=== PATIENT | male | born 1990 | race Two or more races ===

== ENCOUNTER 2023-02-09 18:20 | Emergency (ER) | payer SELFPAY ==
[~2023-02-09] VITALS: Ht 167.6 cm; Wt 91.0 kg
[2023-02-09 19:16] LABS: Basophils # (auto) 0 10 ^3/uL (0-0.2); Basophils % (auto) 0.4 % (0.0-2.0); Eosinophils # (auto) 0.1 10 ^3/uL (0-0.8); Hemoglobin 15.9 g/dL (13.5-17.5); Lymphocytes # (auto) 2.2 10 ^3/uL (0.4-5.4); Lymphocytes % (auto) 27.9 % (10.0-50.0); Mean Corpuscular Hemoglobin 30.4 pg (28.0-32.0); Mean Corpuscular Hgb Conc. 34.5 g/dL (32.0-36.0); Mean Corpuscular Volume 88.1 fL (80.0-100.0); Monocytes # (auto) 0.6 10 ^3/uL (0-1.3); Monocytes % (auto) 7.1 % (0.0-12.0); Neutrophils # (auto) 5.1 10 ^3/uL (1.6-8.6); Neutrophils % (auto) 63.6 % (37.0-80.0); Red Blood Cells 5.23 10^6/uL (4.5-5.90)
[2023-02-09 19:30] LABS: Albumin 4.5 g/dL (3.4-5.0); Calcium 9.4 mg/dL (8.5-10.1); Potassium 4.3 mmol/L (3.5-5.1)
[2023-02-09 19:37] LABS: Bilirubin, Total 0.5 mg/dL (0.2-1.0); CRP High Sensitivity 0.13 mg/dL (< 0.3); Total Protein 7.9 g/dL (6.4-8.2)
[2023-02-09 21:20] LABS: Urine Bacteria NONE SEEN /hpf (None Seen); Urine Blood Negative /uL (Negative); Urine Mucus FEW (None Seen); Urine Specific Gravity 1.014 (1.001-1.035); Urine WBC 1 /hpf (0 - 3)
[2023-02-09 22:42] VITALS: BP 109/74
== END 2023-02-09 22:42 | disposition home or self-care (01) ==
LOC: EDBD 18:20 → ER 18:25 → EDBD 18:25 → ER 22:42
DX: I86.1 Scrotal varices (principal)
CPT/HCPCS: 36415; 74176; 76870; 80053; 81001; 85025; 86141

== ENCOUNTER 2023-05-27 14:03 | Emergency (ER) | payer MEDICAID ==
[~2023-05-27] VITALS: Ht 162.6 cm; Wt 95.3 kg
[2023-05-27 14:13] VITALS: BP 132/85; PULSE 85; RESP 17; TEMP 97.4; O2SAT 99
[2023-05-27] MEDS ORDERED: IBUP-1456 PO (16:21)
== END 2023-05-27 16:34 | disposition home or self-care (01) ==
LOC: ER 14:03
DX: I86.1 Scrotal varices (principal); N43.3 Hydrocele, unspecified; N50.812 Left testicular pain
CPT/HCPCS: 76870; 81002

== ENCOUNTER 2023-10-29 21:07 | Emergency (ER) | payer MEDICAID ==
[~2023-10-29] VITALS: Ht 167.6 cm; Wt 100.0 kg
[~2023-10-29 21:07] MED LIST: IBUP-1456 PO
[2023-10-29 21:54] LABS: Basophils # (auto) 0 10 ^3/uL (0-0.2); Basophils % (auto) 0.5 % (0.0-2.0); Eosinophils # (auto) 0.1 10 ^3/uL (0-0.8); Eosinophils % (auto) 1.6 % (0.0-7.0); Hematocrit 49.2 % (41.0-53.0); Hemoglobin 16.4 g/dL (13.5-17.5); Lymphocytes # (auto) 2.6 10 ^3/uL (0.4-5.4); Lymphocytes % (auto) 27.3 % (10.0-50.0); Mean Corpuscular Hemoglobin 29.3 pg (28.0-32.0); Mean Corpuscular Hgb Conc. 33.3 g/dL (32.0-36.0); Mean Corpuscular Volume 88.2 fL (80.0-100.0); Monocytes # (auto) 0.7 10 ^3/uL (0-1.3); Monocytes % (auto) 7.7 % (0.0-12.0); Neutrophils # (auto) 5.9 10 ^3/uL (1.6-8.6); Neutrophils % (auto) 62.9 % (37.0-80.0); Nucleated Red Blood Cells % 0.1 %; Red Blood Cells 5.58 10^6/uL (4.5-5.90); Red Cell Distribution Width 13.1 % (11.8-14.3); White Blood Cell 9.3 10^3/uL (4.4-10.8)
[2023-10-29 22:10] LABS: Alanine Aminotransferase 59 U/L (7-40); Albumin 4.8 g/dL (3.2-4.8); Alkaline Phosphatase 99 U/L (46-116); Anion Gap 7 (5-15); Aspartate Aminotransferase 28 U/L (13-40); BUN/Creatinine Ratio 8.7 (10.0-20.0); Blood Urea Nitrogen 8 mg/dL (9-23); Calcium 9.6 mg/dL (8.7-10.4); Carbon Dioxide 24 mmol/L (20-30); Chloride 107 mmol/L (98-107); Glucose 95 mg/dL (74-106); Potassium 4.4 mmol/L (3.5-5.1); Sodium 138 mmol/L (136-145)
[2023-10-29 22:11] LABS: Bilirubin, Total 0.3 mg/dL (0.2-1.0); Total Protein 7.2 g/dL (5.7-8.2)
[2023-10-29 22:35] LABS: Urine Bacteria NONE SEEN /hpf (None Seen); Urine Blood Negative /uL (Negative); Urine Clarity Clear (Clear); Urine Color Colorless (Yellow); Urine Mucus FEW (None Seen); Urine Protein, UAD Negative (Negative); Urine Urobilinogen Normal (Negative); Urine WBC 1 /hpf (0 - 3); Urine pH 5.5 (5.0-8.0)
[2023-10-30] MEDS: MORPHINE SULFATE 4 MG/ML SYR/VIAL IV ONE (02:00)
[2023-10-30] MEDS: SODIUM CHLORIDE 0.9% 1,000 ML IV ONE (02:00)
[2023-10-30] MEDS: ONDANSETRON HCL 4 MG/2 ML VIAL IV ONE (02:00)
[2023-10-30] MEDS: PANTOPRAZOLE 40 MG/10 ML VIAL INJ IV ONE (02:00)
[2023-10-30] MEDS ORDERED: ZOFR4T PO (02:04)
[2023-10-30] MEDS ORDERED: FAMO20TA10 PO (02:04)
[2023-10-30] MEDS ORDERED: HYDR-4902 PO (02:04)
[2023-10-30 03:35] VITALS: BP 134/90; PULSE 100; RESP 13; TEMP 98.8; O2SAT 100
== END 2023-10-30 03:47 | disposition home or self-care (01) ==
LOC: ER 21:07
DX: K29.70 Gastritis, unspecified, without bleeding (principal); K80.20 Calculus of gallbladder without cholecystitis without obstruction; R07.89 Other chest pain
CPT/HCPCS: 36415; 76700; 80053; 81001; 83690; 84484; 85025; 93005

== ENCOUNTER → 2023-11-03 | Emergency (ER) | payer MEDICAID ==
[~2023-11-03] VITALS: Ht 167.6 cm; Wt 99.1 kg
[~2023-11-03] MED LIST changes: +FAMO20TA10 PO; +HYDR-4902 PO; +IBUP1TAB5 PO; +ZOFR4T PO
[2023-11-03 20:11] VITALS: BP 107/54; PULSE 96; RESP 14; O2SAT 99
[2023-11-03 21:55] LABS: Amphetamine Screen, Urine Neg (NEGATIVE); Barbiturate Scree,Urine Neg (NEGATIVE); Benzodiazephine Screen, Urine Neg (NEGATIVE); Cocaine Screen, Urine Neg (NEGATIVE); Opiate Scree,Urine Neg (NEGATIVE); Phencyclidine Screen, Urine Neg (NEGATIVE)
[2023-11-03 21:56] LABS: Cannabinoid Screen, Urine Neg (NEGATIVE)
== END | disposition home or self-care (01) ==
LOC: ER 19:26
DX: Z02.79 Encounter for issue of other medical certificate (principal); K80.20 Calculus of gallbladder without cholecystitis without obstruction; Z79.899 Other long term (current) drug therapy; Z79.1 Long term (current) use of non-steroidal anti-inflammatories (NSAID)
CPT/HCPCS: 80307

== ENCOUNTER 2024-02-10 15:01 | Emergency (ER) | payer MEDICAID ==
[~2024-02-10] VITALS: Ht 167.6 cm; Wt 94.7 kg
[~2024-02-10 15:01] MED LIST changes: -HYDR-4902 PO
[2024-02-10 15:33] LABS: Urine Bacteria None Seen /hpf (None Seen); Urine WBC None Seen /hpf (0 - 3)
[2024-02-10 15:42] LABS: Urine Blood Negative /uL (Negative); Urine Clarity Clear (Clear); Urine Color Light-Yellow (Yellow); Urine Mucus FEW (None Seen); Urine Protein, UAD Negative (Negative); Urine Specific Gravity 1.016 (1.001-1.035); Urine Urobilinogen Normal (Negative); Urine pH 5.5 (5.0-9.0)
[2024-02-10] MEDS: HYDROcodone-ACET 10/325MG TAB PO ONE (15:51)
[2024-02-10 16:10] VITALS: BP 132/77; PULSE 88; RESP 16; TEMP 98.3; O2SAT 98
[2024-02-10] MEDS ORDERED: IBUP-1455 PO (16:21)
[2024-02-10] MEDS ORDERED: ACE3T PO (16:21)
== END 2024-02-10 16:28 | disposition home or self-care (01) ==
LOC: ER 15:01
DX: N50.812 Left testicular pain (principal); E66.9 Obesity, unspecified; Z68.33 Body mass index [BMI] 33.0-33.9, adult; Z79.899 Other long term (current) drug therapy
CPT/HCPCS: 76870; 81001

== ENCOUNTER 2024-05-02 19:01 | Emergency (ER) | payer MEDICAID ==
[~2024-05-02] VITALS: Ht 170.2 cm; Wt 92.8 kg
[~2024-05-02 19:01] MED LIST changes: +ACE3T PO; +IBUP-1455 PO
[2024-05-02 20:16] LABS: Urine Bacteria None Seen /hpf (None Seen)
[2024-05-02 20:23] LABS: Urine Blood Negative /uL (Negative); Urine Clarity Clear (Clear); Urine Color Light-Yellow (Yellow); Urine Mucus FEW (None Seen); Urine Protein, UAD Negative (Negative); Urine Specific Gravity 1.021 (1.001-1.035); Urine Urobilinogen Normal (Negative); Urine WBC <1 /hpf (0 - 3)
[2024-05-02 21:44] LABS: Basophils # (auto) 0 10 ^3/uL (0-0.2); Basophils % (auto) 0.6 % (0.0-2.0); Eosinophils # (auto) 0.1 10 ^3/uL (0-0.8); Eosinophils % (auto) 1.7 % (0.0-7.0); Hematocrit 46.3 % (41.0-53.0); Hemoglobin 15.3 g/dL (13.5-17.5); Lymphocytes # (auto) 2.1 10 ^3/uL (0.4-5.4); Lymphocytes % (auto) 31.7 % (10.0-50.0); Mean Corpuscular Hemoglobin 29.3 pg (28.0-32.0); Mean Corpuscular Volume 88.8 fL (80.0-100.0); Monocytes # (auto) 0.5 10 ^3/uL (0-1.3); Monocytes % (auto) 7.4 % (0.0-12.0); Neutrophils # (auto) 3.8 10 ^3/uL (1.6-8.6); Neutrophils % (auto) 58.6 % (37.0-80.0); Nucleated Red Blood Cells % 0.1 %; Red Blood Cells 5.22 10^6/uL (4.5-5.90); Red Cell Distribution Width 13.3 % (11.8-14.3); White Blood Cell 6.5 10^3/uL (4.4-10.8)
[2024-05-02 21:52] LABS: Alanine Aminotransferase 35 U/L (7-40); Albumin 4.5 g/dL (3.2-4.8); Alkaline Phosphatase 90 U/L (46-116); Anion Gap 6 (5-15); Aspartate Aminotransferase 16 U/L (13-40); BUN/Creatinine Ratio 15.5 (10.0-20.0); Bilirubin, Total 0.5 mg/dL (0.2-1.0); Blood Urea Nitrogen 15 mg/dL (9-23); Calcium 9.8 mg/dL (8.7-10.4); Carbon Dioxide 28 mmol/L (20-30); Chloride 106 mmol/L (98-107); Glucose 90 mg/dL (74-106); Potassium 4.3 mmol/L (3.5-5.1); Sodium 140 mmol/L (136-145); Total Protein 7.1 g/dL (5.7-8.2)
[2024-05-02 22:00] VITALS: BP 112/68; PULSE 70; RESP 16; TEMP 98.5; O2SAT 99
[2024-05-02] MEDS ORDERED: IBUP-1455 PO (22:09)
[2024-05-02] MEDS ORDERED: CIPR-173 PO (22:09)
[2024-05-02] MEDS: methylPREDNISolone SOD SUCC 125 MG/2 ML VL IM ONE (22:17)
[2024-05-02] MEDS: KETOROLAC TROMETH 30 MG/ML 1ML VIAL IM ONE (22:17)
== END 2024-05-02 22:32 | disposition home or self-care (01) ==
LOC: ER 19:01
DX: N50.812 Left testicular pain (principal); I86.1 Scrotal varices
CPT/HCPCS: 36415; 76870; 80053; 81001; 85025; 96372; 99285; J1885; J2919

== ENCOUNTER 2024-11-22 17:35 | Inpatient (IN) | payer MEDICAID ==
[~2024-11-22] VITALS: Ht 167.6 cm; Wt 105.5 kg
[~2024-11-22 17:35] MED LIST changes: +CIPR-173 PO
--- NOTE | 2024-11-22 19:35 | DVH ---
Procedure: US TESTICULAR ULTRASOUND Study Date and Requested Time: 11/22/2024 06:43 PM History: Bilateral testicular pain Comparison: US TESTICULAR ULTRASOUND on DOS: 05/02/24, US TESTICULAR ULTRASOUND on DOS: 02/10/24, US TE STICULAR ULTRASOUND on DOS: 05/27/23 Technique: Multiple high-resolution grayscale images of scrotal contents obtained. Color and spectral Doppler used for evaluation of testicular blood flow. Findings: Right testicle measures 5.1 x 2.2 x 3.1 cm with homogenous echotexture and normal contours. Right epi didymal head measures 1.4 cm with a 0.8 cm cyst. Left testicle measures 4.4 x 2 x 2.8 cm with homogenous echotexture and normal contours. Left epididy mal head measures 1.2 cm with a 0.4 cm cyst. Normal testicular color and spectral Doppler flow bilaterally. No evidence of testicular torsion, mas s, or hydrocele. Left-sided varicocele is noted. Impression: No evidence of testicular torsion . Bilateral small epididymal head cysts. Left-sided varicocele.
[2024-11-22 19:40] VITALS: PULSE 83; RESP 18
[2024-11-22] MEDS: KETOROLAC TROMETH 60MG/2ML VIAL IM ONE (19:46)
--- NOTE | 2024-11-22 20:11 | ED.PDOC ---
General HPI Comments This patient is a morbidly obese 34-year-old male who arrives the ED today for evaluation of bilateral testicular pain for the past few weeks. Patient states he was diagnosed with a varicocele and hydrocele 10 days ago, but patient has not followed up with his primary care provider or uro. Patient denies any fever nausea or vomiting. Vital signs were stable on arrival. Chief Complaint: Testicle Pain Time Seen by MD: 18:11 Primary Care Provider: UNKNOWN Reviewed notes: Nurses Notes Allergies: Coded Allergies: NO KNOWN ALLERGIES (Unverified , 02/09/23) Home Meds Active Scripts Ibuprofen Micronized (Ibuprofen) 800 Mg Tab, 800 MG PO TID PRN, #40 TAB Prov:KENDRICK VERDUZCO [employer]INCIPAL 05/02/24 Ciprofloxacin Hcl (Cipro) 500 Mg Tab, 1 TAB PO BID for 7 Days, #14 TAB Prov:KENDRICK VERDUZCO [employer] PRINCIPAL 05/02/24 Acetaminophen W/ Codeine (Tylenol W/Cod #3) 1 Tab Tb, 1 TAB PO Q6HP PRN, #15 TAB Prov:ROSA GRANADOS PAC 02/10/24 Ibuprofen Micronized (Ibuprofen) 800 Mg Tab, 800 MG PO Q8HP PRN, #20 TAB Prov:ROSA GRANADOS PAC 02/10/24 Ibuprofen Micronized (Ibuprofen) 600 Mg Tab, 1 TAB PO Q8HPRN PRN, #20 TAB As needed for pain Prov:MILES HILL Q PENOLOGY PROFESSOR 11/03/23 Famotidine (PEPCID TABLET) 20 Mg Tb, 1 TAB PO BID for 30 Days, #60 TAB Prov:MILES HILL Q PENOLOGY PROFESSOR 10/30/23 Ondansetron Odt 4MG Tab (ZOFRAN PO) 4 Mg Tb, 1 TAB PO Q8HPRN PRN, #12 TAB as needed for nausea vomiting ODT TAB-DISSOLVE IN MOUTH, THEN SWALLOW Prov:MILES HILL Q PENOLOGY PROFESSOR 10/30/23 Ibuprofen (Ibuprofen) 800 Mg Tab, 1 TAB PO TID, #30 TAB Prov:RICO ANAYA PENOLOGY PROFESSOR 05/27/23 Information Source: Patient Mode of Arrival: Ambulatory Severity: Moderate Timing: Weeks Duration: Since onset Prehospital treatment: None Onset: Spontaneous Symptoms: Other (Bilateral testicular pain) Location male: R Scrotum, L Scrotum Penile discharge: None Modifying factors: None associated signs and symptoms: Other ( bilateral testicular pain) Past Medical History PAST MEDICAL HISTORY: Denies Past Medical History (Other): recent varicocele and hydrocele Surgical History: Denies all surgeries Family History Family History: Reviewed,noncontributory to illness Social History Smoker: Non-Smoker Alcohol: Denies ETOH Use Drugs: Denies Drug Use Lives In: Home Constitutional: denies: chills, diaphoresis, fatigue, fever, malaise, sweats, weakness, others EENTM: denies: blurred vision, double vision, ear bleeding, ear discharge, ear drainage, ear pain, ear ringing, eye pain, eye redness, hearing loss, mouth pain, mouth swelling, nasal discharge, nose bleeding, nose congestion, nose pain, photophobia, tearing, throat pain, throat swelling, voice changes, others Respiratory: denies: cough, hemoptysis, orthopnea, SOB at rest, shortness of breath, SOB with excertion, stridor, wheezing, others Cardiovascular: denies: chest pain, dizzy spells, diaphoresis, Dyspnea on exertion, edema, irregular heart beat, left arm pain, lightheadedness, palpitations, PND, syncope, others Gastrointestinal: denies: abdomen distended, abdominal pain, blood streaked bowels, constipated, diarrhea, dysphagia, difficulty swallowing, hematemesis, melena, nausea, poor appetite, poor fluid intake, rectal bleeding, rectal pain, vomiting, others Genitourinary: reports: testicle pain, testicle swelling; denies: burning, dysuria, flank pain, frequency, hematuria, incontinence, penile discharge, penile sore, pain, urgency, others Neurological: denies: dizziness, fainting, headache, left sided numbness, left sided weakness, numbness, paresthesia, pre-existing deficit, right sided numbness, right sided weakness, seizure, speech problems, tingling, tremors, weakness, others Musculoskeletal: denies: back pain, gout, joint pain, joint swelling, muscle pain, muscle stiffness, neck pain, others Integumetry: denies: bruises, change in color, change in hair/nails, dryness, laceration, lesions, lumps, rash, wounds, others Allergic/Immunocompromised: denies: Difficulty Healing, Frequent Infections, Hives, Itching, others Hematologic/Lymphatic: denies: anemia, blood clots, easy bleeding, easy bruising, swollen glands, others Endocrine: denies: excessive hunger, excessive sweating, excessive thirst, excessive urination, flushing, intolerance to cold, intolerance to heat, unexplained weight gain, unexplained weight loss, others Psychiatric: denies: anxiety, bipolar disorder, depression, hopeless, panic disorder, schizophrenia, sleepless, suicidal, others Physical Exam General Appearance: Moderate Distress ( due to bilateral testicular pain), Obese HEENT: Normal ENT Inspection, Pharynx Normal, TMs Normal Neck: Full Range of Motion, Non-Tender, Normal, Normal Inspection Respiratory: Chest Non-Tender, Lungs Clear, No Accessory Muscle Use, No Respiratory Distress, Normal Breath Sounds Cardiovascular: No Edema, No JVD, No Murmur, No Gallop, Normal Peripheral Pulses, Regular Rate/Rhythm Breast Exam: Deferred Gastrointestinal: No Organomegaly, Non Tender, No Pulsatile Mass, Normal Bowel Sounds, Soft Genitalia: Other ( patient has bilateral testicles were exquisitely tender to palpation with noted grade 2/three varicocele i.e. appreciated in bilateral testicles with left greater than right. No penile discharge noted. No chancre formation.) Pelvic: Deferred Rectal: Deferred Extremities: No calf tenderness, Normal capillary refill, Normal inspection, Normal range of motion, Non-tender, No pedal edema Neurologic: Alert, No Motor Deficits, Normal Affect, Normal Mood, No Sensory Deficits Cerebellar Function: Normal Reflexes: Normal Skin: Dry, Normal Color, Warm Lymphatic: No Adenopathy Was a procedure done? Was a procedure done?: No Differential Diagnosis Kidney stone (Female): N/A Penile/Scrotal: Other ( Hydrocele, varicocele, testicular torsion, testicular cyst) X-Ray, Labs, Meds, VS Vital Signs Date Time Temp Pulse Resp B/P (MAP) Pulse Ox O2 Delivery O2 Flow Rate FiO2 11/22/24 18:17 98.2 93 16 128/84 (99) 100 Current Medications Medications (Trade) Dose Ordered Sig/Aruan Route Start Time Stop Time Status Last Admin Ketorolac Tromethamine (Toradol Injection) 30 mg ONCE ONCE IM 11/22/24 18:30 11/22/24 18:31 DC 11/22/24 19:46 X-Ray, Labs, Meds, VS Comment All studies performed the ED were evaluated by me personally. Patient's imaging studies revealed a bilateral small epididymal head cysts as well as a left-sided varicocele. Patient presentation is a grade 2/3 varicocele and therefore, patient will be admitted for surgical evaluation.Multiple attempts were made to contact Urology at time of this note, but no return calls had been received. Time of 1ST Reevaluation: 20:10 Reevaluation 1ST: Improved Consultation: PCP, Urology Patient Education/Counseling: Diagnosis, Treatment Family Education/Counseling: Diagnosis, Treatment Departure 1 Departure Time of Disposition: 20:11 Impression: Primary Impression: Varicocele Disposition: ADMITTED INPATIENT Condition: Fair Discharged With: Self Critical Care Note Critical Care Time?: No Stability Stability form required: No Heart Score Heart Score: Heart Score Response (Comments) Value History N/A 0 EKG N/A 0 Age N/A 0 Risk Factors N/A 0 Troponin N/A 0 Total 0 ROSA GRANADOS [facility] Nov 22, 2024 20:11
[2024-11-22 20:15] LABS: Urine Bacteria None Seen /hpf (None Seen)
[2024-11-22] MEDS: HYDROcodone-ACET 10/325MG TAB PO ONE (20:28)
[2024-11-22 20:37] LABS: Basophils # (auto) 0 10 ^3/uL (0-0.2); Basophils % (auto) 0.5 % (0.0-2.0); Eosinophils # (auto) 0.1 10 ^3/uL (0-0.8); Eosinophils % (auto) 1.6 % (0.0-7.0); Hematocrit 46.8 % (41.0-53.0); Hemoglobin 15.7 g/dL (13.5-17.5); Lymphocytes # (auto) 2.7 10 ^3/uL (0.4-5.4); Lymphocytes % (auto) 36.1 % (10.0-50.0); Mean Corpuscular Hemoglobin 29.5 pg (28.0-32.0); Mean Corpuscular Hgb Conc. 33.7 g/dL (32.0-36.0); Mean Corpuscular Volume 87.7 fL (80.0-100.0); Monocytes # (auto) 0.4 10 ^3/uL (0-1.3); Monocytes % (auto) 5.9 % (0.0-12.0); Neutrophils # (auto) 4.2 10 ^3/uL (1.6-8.6); Neutrophils % (auto) 55.9 % (37.0-80.0); Nucleated Red Blood Cells % 0.3 %; Platelet Count (auto) 247 10^3/uL (140-450); Red Blood Cells 5.33 10^6/uL (4.5-5.90); Red Cell Distribution Width 13.1 % (11.8-14.3); White Blood Cell 7.5 10^3/uL (4.4-10.8)
[2024-11-22 20:39] LABS: Urine Blood Negative /uL (Negative); Urine Clarity Clear (Clear); Urine Color Light-Yellow (Yellow); Urine Mucus FEW (None Seen); Urine Protein, UAD Negative (Negative); Urine Specific Gravity 1.025 (1.001-1.035); Urine Squamous Epithelial Cell None Seen /hpf (<5); Urine Urobilinogen Normal (Negative); Urine WBC < 1 /HPF (0-3); Urine pH 5.5 (5.0-9.0)
[2024-11-22 21:04] LABS: Alanine Aminotransferase 65 U/L (7-40); Albumin 4.8 g/dL (3.2-4.8); Alkaline Phosphatase 93 U/L (46-116); Anion Gap 6 (5-15); Aspartate Aminotransferase 25 U/L (13-40); Bilirubin, Total 0.4 mg/dL (0.2-1.0); Blood Urea Nitrogen 14 mg/dL (9-23); Calcium 9.9 mg/dL (8.7-10.4); Carbon Dioxide 27 mmol/L (20-31); Chloride 106 mmol/L (98-107); Glucose 93 mg/dL (74-106); Potassium 4.2 mmol/L (3.5-5.1); Sodium 139 mmol/L (136-145); Total Protein 7.2 g/dL (5.7-8.2)
[2024-11-22 23:20] VITALS: BP 102/54; PULSE 62; RESP 18; TEMP 97.8; O2SAT 97
[2024-11-22 23:35] VITALS: PULSE 78; RESP 18; O2SAT 97
--- NOTE | 2024-11-22 23:47 | DVHHPRES ---
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 The patient reports that he has had intermittent testicular discomfort since 2022, at which time a previous ultrasound identified varicoceles and a hydrocele. However, he did not follow up with a urologist for further evaluation or management. Over the past several weeks, he has noticed increasing pain, which has become persistent and is now interfering with his daily activities. No history of trauma, dysuria, hematuria, fever, chills, nause a, or weight loss. No prior surgeries or history of sexually transmitted infections. 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 No tobacco use Social alcohol use No history of illicit drug use Sexually active with female partners, no known history of STIs Review of Systems Review of Systems General: No fever, chills, weight loss, or night sweats Genitourinary: Bilateral testicular pain, no dysuria, hematuria, or urinary frequency Cardiovascular: No chest pain, palpitations, or syncope Pulmonary: No shortness of breath, cough, or wheezing Gastrointestinal: No nausea, vomiting, abdominal pain, or changes in bowel habits Neurological: No weakness, numbness, or tingling Allergies: Coded Allergies: NO KNOWN ALLERGIES (Unverified , 02/09/23) Medications Current Medications Medications Dose Ordered Sig/Aruna Route Start Time Stop Time Status Last Admin Dose Admin Ketorolac Tromethamine 30 mg Q6HPRN PRN IV 11/22/24 21:30 11/27/24 21:29 Acetaminophen 650 mg Q4HP PRN PO 11/22/24 21:30 Exam Vital Signs Vital Signs Date Time Temp Pulse Resp B/P (MAP) Pulse Ox O2 Delivery O2 Flow Rate FiO2 11/22/24 22:24 97.7 90 17 121/80 (94) 95 97.7 11/22/24 19:40 Room Air* 0 21 Exam General: Well-developed, well-nourished male, in no acute distress. HEENT: Normocephalic, atraumatic. No lymphadenopathy. Cardiovascular: Regular rate and rhythm, no murmurs, rubs, or gallops. Pulmonary: Clear to auscultation bilaterally, no rales, rhonchi, or wheezing. Abdomen: Soft, non-tender, non-distended. No palpable masses. No CVA tenderness. Genitourinary: Bilateral testicles descended, non-erythematous, non-warm. No evidence of testicular torsion. Small bilateral epididymal head cysts. Left-sided varicocele noted. No hydrocele noted on this exam. No signs of infection (erythema, discharge). Labs/Xrays Labs Test 11/22/24 20:11 11/22/24 18:00 Range/Units White Blood Count 7.5 4.4-10.8 10^3/uL Red Blood Count 5.33 4.5-5.90 10^6/uL Hemoglobin 15.7 13.5-17.5 g/dL Hematocrit 46.8 41.0-53.0 % Mean Corpuscular Volume 87.7 80.0-100.0 fL Mean Corpuscular Hemoglobin 29.5 28.0-32.0 pg Mean Corpuscular Hemoglobin Concent 33.7 32.0-36.0 g/dL Red Cell Distribution Width 13.1 11.8-14.3 % Platelet Count 247 140-450 10^3/uL Mean Platelet Volume 8.0 6.9-10.8 fL Neutrophils (%) (Auto) 55.9 37.0-80.0 % Lymphocytes (%) (Auto) 36.1 10.0-50.0 % Monocytes (%) (Auto) 5.9 0.0-12.0 % Eosinophils (%) (Auto) 1.6 0.0-7.0 % Basophils (%) (Auto) 0.5 0.0-2.0 % Neutrophils # (Auto) 4.2 1.6-8.6 10 ^3/uL Lymphocytes # (Auto) 2.7 0.4-5.4 10 ^3/uL Monocytes # (Auto) 0.4 0-1.3 10 ^3/uL Eosinophils # (Auto) 0.1 0-0.8 10 ^3/uL Basophils # (Auto) 0 0-0.2 10 ^3/uL Nucleated Red Blood Cells 0.3 % Sodium Level 139 136-145 mmol/L Potassium Level 4.2 3.5-5.1 mmol/L Chloride Level 106 98-107 mmol/L Carbon Dioxide Level 27 20-31 mmol/L Anion Gap 6 5-15 Blood Urea Nitrogen 14 9-23 mg/dL Creatinine 1.00 0.700-1.30 mg/dL Glomerular Filtration Rate Calc 101 >90 mL/min BUN/Creatinine Ratio 14.0 10.0-20.0 Serum Glucose 93 74-106 mg/dL Calcium Level 9.9 8.7-10.4 mg/dL Total Bilirubin 0.4 0.2-1.0 mg/dL Aspartate Amino Transferase (AST) 25 13-40 U/L Alanine Aminotransferase (ALT) 65 H 7-40 U/L Alkaline Phosphatase 93 46-116 U/L Total Protein 7.2 5.7-8.2 g/dL Albumin 4.8 3.2-4.8 g/dL Urine Color Light-yellow Yellow Urine Clarity Clear Clear Urine pH 5.5 5.0-9.0 Urine Specific [place] 1.025 1.001-1.035 Urine Protein Negative Negative Urine Ketones Negative Negative Urine Blood Negative Negative /uL Urine Nitrite Negative Negative Urine Bilirubin Negative Negative Urine Urobilinogen Normal Negative mg/dL Urine Leukocyte Esterase Negative Negative /uL Urine RBC <1 0 - 3 /hpf Urine Microscopic WBC < 1 0-3 /HPF Urine Squamous Epithelial Cells None seen <5 /hpf Urine Bacteria None seen None Seen /hpf Urine Mucus Few None Seen Urine Glucose Normal Normal mg/dL Assessment/Plan Assessment/Plan Ultrasound Testicular (11/22/2024): No evidence of testicular torsion, mass, or hydrocele. Bilateral small epididymal head cysts. Left-sided varicocele. Normal testicular blood flow. Assessment & Plan 34-year-old male with a history of left-sided varicocele and prior hydrocele, now presenting with worsening bilateral testicular pain. #Painful varicocele Admit for pain management Urology consult for further evaluation and management options Supportive care, including scrotal elevation and NSAIDs (Ketorolac, Tylenol) No signs of epididymitis or orchitis on exam No need for antibiotics at this time NPO after midnight Bed rest with scrotal support Case discussed with Dr Kinsey Plan discussed with: Patient, Other (rn) My Orders Orders - RICHARD JOHNSON RESIDENT Procedure Category Date Status Time Admit ADMIT 11/22/24 Transmitted 21:26 Npo After Midnight DIET 11/23/24 Transmitted Breakfast Ketorolac Injection PHA 11/22/24 In Process (Toradol Injection) 21:30 Acetaminophen Tablet PHA 11/22/24 In Process (Tylenol Tablet) 21:30 * Urology Consult CONS 11/22/24 Transmitted 21:26 Date of Service: Nov 22, 2024 Billing Provider: RJ KINSEY MD Common Visit Codes: [id number] INP/OBS CARE (HIGH) RICHARD JOHNSON RESIDENT Nov 22, 2024 23:47 RJ KINSEY MD Nov 26, 2024 17:23
[2024-11-23] VITALS (7 sets, daily range): BP systolic 95–146; BP diastolic 57–106; PULSE 60–100; RESP 16–20; TEMP 97.5–98.7; O2SAT 90–100
[2024-11-23 05:57] LABS: Basophils # (auto) 0 10 ^3/uL (0-0.2); Basophils % (auto) 0.4 % (0.0-2.0); Eosinophils # (auto) 0.1 10 ^3/uL (0-0.8); Eosinophils % (auto) 1.7 % (0.0-7.0); Hematocrit 43.1 % (41.0-53.0); Hemoglobin 14.7 g/dL (13.5-17.5); Lymphocytes # (auto) 2.3 10 ^3/uL (0.4-5.4); Lymphocytes % (auto) 29.6 % (10.0-50.0); Mean Corpuscular Hemoglobin 29.9 pg (28.0-32.0); Mean Corpuscular Volume 87.9 fL (80.0-100.0); Monocytes # (auto) 0.5 10 ^3/uL (0-1.3); Monocytes % (auto) 6.8 % (0.0-12.0); Neutrophils # (auto) 4.8 10 ^3/uL (1.6-8.6); Neutrophils % (auto) 61.5 % (37.0-80.0); Nucleated Red Blood Cells % 0.1 %; Platelet Count (auto) 231 10^3/uL (140-450); Red Cell Distribution Width 12.9 % (11.8-14.3); White Blood Cell 7.8 10^3/uL (4.4-10.8)
[2024-11-23 06:14] LABS: INR 1.01 (0.9-1.15); Partial Thromboplastin Time 25.4 SEC (24.5-34.5); Prothrombin Time 10.7 sec (9.3-11.8)
[2024-11-23 06:17] LABS: Albumin 4.4 g/dL (3.2-4.8); Alkaline Phosphatase 77 U/L (46-116); Anion Gap 6 (5-15); Aspartate Aminotransferase 27 U/L (13-40); BUN/Creatinine Ratio 18.6 (10.0-20.0); Blood Urea Nitrogen 19 mg/dL (9-23); Calcium 9.2 mg/dL (8.7-10.4); Carbon Dioxide 26 mmol/L (20-31); Chloride 106 mmol/L (98-107); Glucose 90 mg/dL (74-106); Sodium 138 mmol/L (136-145); Total Protein 6.7 g/dL (5.7-8.2)
[2024-11-23 06:18] LABS: Bilirubin, Total 0.4 mg/dL (0.2-1.0)
[2024-11-23 06:28] LABS: Alanine Aminotransferase 52 U/L (7-40)
[2024-11-23 08:02] LABS: Amphetamine Screen, Urine Neg (NEGATIVE); Barbiturate Scree,Urine Neg (NEGATIVE); Benzodiazephine Screen, Urine Neg (NEGATIVE); Cannabinoid Screen, Urine Neg (NEGATIVE); Cocaine Screen, Urine Neg (NEGATIVE); Opiate Scree,Urine Neg (NEGATIVE); Phencyclidine Screen, Urine Neg (NEGATIVE)
[2024-11-23] MEDS: cefTRIAXone 1GM/50ML D5W 50 ML IV SCH (12:13)
[2024-11-23] MEDS: ACETAMINOPHEN 325 MG TAB PO PRN (12:38)
[2024-11-23] MEDS: KETOROLAC TROMETH 30 MG/ML 1ML VIAL IV PRN (14:30)
--- NOTE | 2024-11-23 16:17 | DVHPN2 ---
Subjective in bed having some pain Changes from previous H/P or p: No Changes Objective Vitals Vital Signs Date Time Temp Pulse Resp B/P (MAP) Pulse Ox O2 Delivery O2 Flow Rate FiO2 11/23/24 12:40 97.5 60 16 107/71 (83) 96 97.5 11/23/24 08:05 Room Air* 0 21 Intake/Output Intake and Output 11/23/24 07:00 Intake Total 100 ml Balance 100 ml Intake Oral 100 ml General Appearance: Alert, Oriented X3 Lungs: Clear to auscultation Cardiovascular: Regular rate, Normal S1, Normal S2 Medications Current Medications Medications Dose Ordered Sig/Aruna Route Start Time Stop Time Status Last Admin Dose Admin Ketorolac Tromethamine 30 mg Q6HPRN PRN IV 11/22/24 21:30 11/27/24 21:29 11/23/24 14:30 30 MG Acetaminophen 650 mg Q4HP PRN PO 11/22/24 21:30 11/23/24 12:38 650 MG Ceftriaxone Sodium 50 ml @ 100 mls/hr DAILY@09 IV 11/23/24 09:00 11/23/24 12:13 100 MLS/HR Laboratory Results Laboratory Tests 11/23/24 04:25 Chemistry Test 11/22/24 20:11 11/23/24 04:25 Albumin 4.8 g/dL (3.2-4.8) 4.4 g/dL (3.2-4.8) Calcium Level 9.9 mg/dL (8.7-10.4) 9.2 mg/dL (8.7-10.4) Total Protein 7.2 g/dL (5.7-8.2) 6.7 g/dL (5.7-8.2) Coagulation Test 11/23/24 04:25 Prothrombin Time 10.7 sec (9.3-11.8) Prothrombin Time INR 1.01 (0.9-1.15) Activated Partial Thromboplast Time 25.4 SEC (24.5-34.5) LFT Test 11/22/24 20:11 11/23/24 04:25 Alanine Aminotransferase (ALT) 65 U/L (7-40) H 52 U/L (7-40) H Alkaline Phosphatase 93 U/L (46-116) 77 U/L (46-116) Aspartate Amino Transferase (AST) 25 U/L (13-40) 27 U/L (13-40) Total Bilirubin 0.4 mg/dL (0.2-1.0) 0.4 mg/dL (0.2-1.0) HgA1c, TSH Test 11/23/24 04:25 Thyroid Stimulating Hormone (TSH) 1.42 uIU/mL (0.55-4.78) Urinalysis Test 11/22/24 18:00 Urine Color Light-yellow (Yellow) Urine Clarity Clear (Clear) Urine pH 5.5 (5.0-9.0) Urine Specific [place] 1.025 (1.001-1.035) Urine Protein Negative (Negative) Urine Ketones Negative (Negative) Urine Blood Negative /uL (Negative) Urine Nitrite Negative (Negative) Urine Bilirubin Negative (Negative) Urine Urobilinogen Normal mg/dL (Negative) Urine Leukocyte Esterase Negative /uL (Negative) Urine RBC <1 /hpf (0 - 3) Urine Microscopic WBC < 1 /HPF (0-3) Urine Squamous Epithelial Cells None seen /hpf (<5) Urine Bacteria None seen /hpf (None Seen) Urine Mucus Few (None Seen) Urine Glucose Normal mg/dL (Normal) Assessment/Plan Assessment/Plan 34-year-old male with a history of left-sided varicocele and prior hydrocele, now presenting with worsening bilateral testicular pain. #Painful varicocele Admit for pain management Urology consult for further evaluation and management options Supportive care, including scrotal elevation and NSAIDs (Ketorolac, Tylenol) No signs of epididymitis or orchitis on exam No need for antibiotics at this time waiting on urology consult Plan discussed with: Patient Date of Service: Nov 23, 2024 Billing Provider: LAZARUS BLACK MD Common Visit Codes: [id number] INP/OBS CARE(HIGH) LAZARUS BLACK MD Nov 23, 2024 16:17
--- NOTE | 2024-11-23 18:02 | DVHINCON2 ---
Date of service: Nov 23, 2024 Referring Physician mo Reason for Consultation testicular pain History of Present Illness two year hx intermittant left testicular pain from us dx varicocele Past Medical History neg Past Surgical History noted Family History: Diabetes mellitus G8 FATHER, Allergies: Coded Allergies: NO KNOWN ALLERGIES (Unverified , 02/09/23) Home Meds No Active Prescriptions or Reported Meds Current Medications Current Medications Medications (Trade) Dose Ordered Sig/Aruna Route PRN Reason Start Time Stop Time Status Last Admin Ketorolac Tromethamine (Toradol Injection) 30 mg Q6HPRN PRN IV MODERATE PAIN (4-6 PAIN SCALE) 11/22/24 21:30 11/27/24 21:29 11/23/24 14:30 Acetaminophen (Tylenol Tablet) 650 mg Q4HP PRN PO MILD PAIN (1-3 PAIN SCALE) 11/22/24 21:30 11/23/24 12:38 Ceftriaxone Sodium 50 ml @ 100 mls/hr DAILY@09 IV 11/23/24 09:00 11/23/24 12:13 Vital Signs Vital Signs Date Time Temp Pulse Resp B/P (MAP) Pulse Ox O2 Delivery O2 Flow Rate FiO2 11/23/24 16:56 98.1 65 16 106/58 (74) 100 98.1 11/23/24 08:05 Room Air* 0 21 Physical Exam mild to moderate varicocele and epididymal cyst Labs/Diagnostic Data Labs Test 11/23/24 09:03 11/23/24 04:25 11/22/24 18:00 Range/Units Lactic Acid Level 1.3 0.4-2.0 mmol/L White Blood Count 7.8 4.4-10.8 10^3/uL Red Blood Count 4.90 4.5-5.90 10^6/uL Hemoglobin 14.7 13.5-17.5 g/dL Hematocrit 43.1 41.0-53.0 % Mean Corpuscular Volume 87.9 80.0-100.0 fL Mean Corpuscular Hemoglobin 29.9 28.0-32.0 pg Mean Corpuscular Hemoglobin Concent 34.0 32.0-36.0 g/dL Red Cell Distribution Width 12.9 11.8-14.3 % Platelet Count 231 140-450 10^3/uL Mean Platelet Volume 8.3 6.9-10.8 fL Neutrophils (%) (Auto) 61.5 37.0-80.0 % Lymphocytes (%) (Auto) 29.6 10.0-50.0 % Monocytes (%) (Auto) 6.8 0.0-12.0 % Eosinophils (%) (Auto) 1.7 0.0-7.0 % Basophils (%) (Auto) 0.4 0.0-2.0 % Neutrophils # (Auto) 4.8 1.6-8.6 10 ^3/uL Lymphocytes # (Auto) 2.3 0.4-5.4 10 ^3/uL Monocytes # (Auto) 0.5 0-1.3 10 ^3/uL Eosinophils # (Auto) 0.1 0-0.8 10 ^3/uL Basophils # (Auto) 0 0-0.2 10 ^3/uL Nucleated Red Blood Cells 0.1 % Prothrombin Time 10.7 9.3-11.8 sec Prothrombin Time INR 1.01 0.9-1.15 Activated Partial Thromboplast Time 25.4 24.5-34.5 SEC Sodium Level 138 136-145 mmol/L Potassium Level 4.0 3.5-5.1 mmol/L Chloride Level 106 98-107 mmol/L Carbon Dioxide Level 26 20-31 mmol/L Anion Gap 6 5-15 Blood Urea Nitrogen 19 9-23 mg/dL Creatinine 1.02 0.700-1.30 mg/dL Glomerular Filtration Rate Calc 99 >90 mL/min BUN/Creatinine Ratio 18.6 10.0-20.0 Serum Glucose 90 74-106 mg/dL Calcium Level 9.2 8.7-10.4 mg/dL Total Bilirubin 0.4 0.2-1.0 mg/dL Aspartate Amino Transferase (AST) 27 13-40 U/L Alanine Aminotransferase (ALT) 52 H 7-40 U/L Alkaline Phosphatase 77 46-116 U/L Total Protein 6.7 5.7-8.2 g/dL Albumin 4.4 3.2-4.8 g/dL Thyroid Stimulating Hormone (TSH) 1.42 0.55-4.78 uIU/mL Urine Color Light-yellow Yellow Urine Clarity Clear Clear Urine pH 5.5 5.0-9.0 Urine Specific [place] 1.025 1.001-1.035 Urine Protein Negative Negative Urine Ketones Negative Negative Urine Blood Negative Negative /uL Urine Nitrite Negative Negative Urine Bilirubin Negative Negative Urine Urobilinogen Normal Negative mg/dL Urine Leukocyte Esterase Negative Negative /uL Urine RBC <1 0 - 3 /hpf Urine Microscopic WBC < 1 0-3 /HPF Urine Squamous Epithelial Cells None seen <5 /hpf Urine Bacteria None seen None Seen /hpf Urine Mucus Few None Seen Urine Glucose Normal Normal mg/dL Urine Opiates Screen Neg NEGATIVE Urine Fentanyl Screen Neg NEGATIVE Urine Barbiturates Screen Neg NEGATIVE Urine Phencyclidine Screen Neg NEGATIVE Urine Amphetamines Screen Neg NEGATIVE Urine Benzodiazepines Screen Neg NEGATIVE Urine Cocaine Screen Neg NEGATIVE Urine Cannabinoids Screen Neg NEGATIVE Assessment testicular pain Plan/Recommendation pt to consider left varicocelectomy Plan discussed with: Patient AIMEE SALOMON MD Nov 23, 2024 18:02
[2024-11-24] VITALS (7 sets, daily range): BP systolic 100–121; BP diastolic 53–73; PULSE 62–78; RESP 17–18; TEMP 97.2–98.8; O2SAT 95–100
--- NOTE | 2024-11-24 17:48 | MEDREC ---
[facility] Intervention Section I [facility] Intervention: Review courses of therapy (PLEASE CONSIDER D/C ANTIBIOTIC(S) IN ABSENCE OF BACTERIAL INFECTION) INDIGO PATEL PHARMACIST Nov 24, 2024 17:48
--- NOTE | 2024-11-24 20:29 | DVHPN2 ---
Subjective in bed having some pain Changes from previous H/P or p: No Changes Objective Vitals Vital Signs Date Time Temp Pulse Resp B/P (MAP) Pulse Ox O2 Delivery O2 Flow Rate FiO2 11/24/24 17:06 97.2 73 17 121/65 (83) 99 97.2 11/24/24 08:10 Room Air* 0 21 Intake/Output Intake and Output 11/24/24 07:00 Intake Total 250 ml Output Total 0 ml Balance 250 ml Intake Oral 200 ml IV Total 50 ml Output Urine Total 0 ml # Voids 1 General Appearance: Alert, Oriented X3 Lungs: Clear to auscultation Cardiovascular: Regular rate, Normal S1, Normal S2 Medications Current Medications Medications Dose Ordered Sig/Aruna Route Start Time Stop Time Status Last Admin Dose Admin Ketorolac Tromethamine 30 mg Q6HPRN PRN IV 11/22/24 21:30 11/27/24 21:29 11/24/24 16:37 30 MG Acetaminophen 650 mg Q4HP PRN PO 11/22/24 21:30 11/24/24 14:07 650 MG Ceftriaxone Sodium 50 ml @ 100 mls/hr DAILY@09 IV 11/23/24 09:00 11/23/24 12:13 100 MLS/HR Laboratory Results Laboratory Tests 11/23/24 04:25 Urinalysis Test 11/22/24 18:00 Urine Color Light-yellow (Yellow) Urine Clarity Clear (Clear) Urine pH 5.5 (5.0-9.0) Urine Specific [place] 1.025 (1.001-1.035) Urine Protein Negative (Negative) Urine Ketones Negative (Negative) Urine Blood Negative /uL (Negative) Urine Nitrite Negative (Negative) Urine Bilirubin Negative (Negative) Urine Urobilinogen Normal mg/dL (Negative) Urine Leukocyte Esterase Negative /uL (Negative) Urine RBC <1 /hpf (0 - 3) Urine Microscopic WBC < 1 /HPF (0-3) Urine Squamous Epithelial Cells None seen /hpf (<5) Urine Bacteria None seen /hpf (None Seen) Urine Mucus Few (None Seen) Urine Glucose Normal mg/dL (Normal) Assessment/Plan Assessment/Plan 34-year-old male with a history of left-sided varicocele and prior hydrocele, now presenting with worsening bilateral testicular pain. #Painful varicocele Supportive care, including scrotal elevation and NSAIDs (Ketorolac, Tylenol) No signs of epididymitis or orchitis on exam No need for antibiotics at this time Urology recommended surgery and pending time Plan discussed with: Patient Date of Service: Nov 24, 2024 Billing Provider: LAZARUS BLACK MD Common Visit Codes: [id number] INP/OBS CARE(HIGH) LAZARUS BLACK MD Nov 24, 2024 20:29
[2024-11-25 01:00] VITALS: BP 115/73; PULSE 66; RESP 18; TEMP 97.7; O2SAT 95
[2024-11-25 05:00] VITALS: BP 106/68; PULSE 62; RESP 17; TEMP 98.2; O2SAT 96
[2024-11-25 09:00] VITALS: BP 130/80; PULSE 80; RESP 17; TEMP 97.8; O2SAT 97
--- NOTE | 2024-11-25 10:02 | DVHINCON2 ---
Date of service: Nov 25, 2024 Referring Physician Hospitalist Reason for Consultation left testicle pain History of Present Illness History Source: Patient, RN Notes, MD Notes Exam Limitations: No limitations HPI 24 yo male otherwise healthy c/o chronic left testicle pain for 2 years. pt was seen by Dr. Maria for weekend coverage. Left Varicocele seen on US. No evidence of infection. No urinary complaint. Home Meds No Active Prescriptions or Reported Meds Past Medical History Patient Family History: Diabetes mellitus G8 FATHER, Review of Systems Genitourinary: Pain (testicle) H&P Exam Vital Signs Vital Signs Date Time Temp Pulse Resp B/P (MAP) Pulse Ox O2 Delivery O2 Flow Rate FiO2 11/25/24 09:00 97.8 80 17 130/80 (97) 97 97.8 11/24/24 20:00 Room Air* 0 21 General Appeara: Well developed, Well nourished, Obese Neuro/Mental St: Alert, Oriented Appearance: Appropriate appearance, Appropriate insight Eye contact/ Speech: Cooperative, Good eye contact, Normal speech Skin Exam: Normal inspection, Normal color, Warm/dry Labs/Xrays [place] [address] Ph: [phone] DIAGNOSTIC IMAGING Diagnostic Imaging Report : [id number] Signed PATIENT: ESME MEDRANO ACCT: [id number] UNIT: [id number] : 1990 LOC: ER ROOM / BED: / AGE / SEX: 34 / M ADM STATUS: REG ER SERVICE 1822 ORDERING PHYSICIAN: ROSA GRANADOS PAC PROCEDURE(s): TESUS - TESTICULAR ULTRASOUND REASON: Bilateral testicular pain ORDER NUMBER(s): [id number], ACCESSION NUMBER(s): [id number] Procedure: US TESTICULAR ULTRASOUND Study Date and Requested Time: 11/22/2024 06:43 PM History: Bilateral testicular pain Comparison: US TESTICULAR ULTRASOUND on DOS: 05/02/24, US TESTICULAR ULTRASOUND on DOS: 02/10/24, US TESTICULAR ULTRASOUND on DOS: 05/27/23 Technique: Multiple high-resolution grayscale images of scrotal contents obtained. Color and spectral Doppler used for evaluation of testicular blood flow. Findings: Right testicle measures 5.1 x 2.2 x 3.1 cm with homogenous echotexture and normal contours. Right epididymal head measures 1.4 cm with a 0.8 cm cyst. Left testicle measures 4.4 x 2 x 2.8 cm with homogenous echotexture and normal contours. Left epididymal head measures 1.2 cm with a 0.4 cm cyst. Normal testicular color and spectral Doppler flow bilaterally. No evidence of testicular torsion, mass, or hydrocele. Left-sided varicocele is noted. Impression: No evidence of testicular torsion . Bilateral small epididymal head cysts. Left-sided varicocele. ATED BY: FRIEDA LOAIZA DO DICTATED DATE/TIME: 11/22/241931 SIGNED BY: FRIEDA LOAIZA DO SIGNED DATE/TIME: 11/22/241931 CC: Labs Test 11/23/24 09:03 11/23/24 04:25 11/22/24 18:00 Range/Units Lactic Acid Level 1.3 0.4-2.0 mmol/L White Blood Count 7.8 4.4-10.8 10^3/uL Red Blood Count 4.90 4.5-5.90 10^6/uL Hemoglobin 14.7 13.5-17.5 g/dL Hematocrit 43.1 41.0-53.0 % Mean Corpuscular Volume 87.9 80.0-100.0 fL Mean Corpuscular Hemoglobin 29.9 28.0-32.0 pg Mean Corpuscular Hemoglobin Concent 34.0 32.0-36.0 g/dL Red Cell Distribution Width 12.9 11.8-14.3 % Platelet Count 231 140-450 10^3/uL Mean Platelet Volume 8.3 6.9-10.8 fL Neutrophils (%) (Auto) 61.5 37.0-80.0 % Lymphocytes (%) (Auto) 29.6 10.0-50.0 % Monocytes (%) (Auto) 6.8 0.0-12.0 % Eosinophils (%) (Auto) 1.7 0.0-7.0 % Basophils (%) (Auto) 0.4 0.0-2.0 % Neutrophils # (Auto) 4.8 1.6-8.6 10 ^3/uL Lymphocytes # (Auto) 2.3 0.4-5.4 10 ^3/uL Monocytes # (Auto) 0.5 0-1.3 10 ^3/uL Eosinophils # (Auto) 0.1 0-0.8 10 ^3/uL Basophils # (Auto) 0 0-0.2 10 ^3/uL Nucleated Red Blood Cells 0.1 % Prothrombin Time 10.7 9.3-11.8 sec Prothrombin Time INR 1.01 0.9-1.15 Activated Partial Thromboplast Time 25.4 24.5-34.5 SEC Sodium Level 138 136-145 mmol/L Potassium Level 4.0 3.5-5.1 mmol/L Chloride Level 106 98-107 mmol/L Carbon Dioxide Level 26 20-31 mmol/L Anion Gap 6 5-15 Blood Urea Nitrogen 19 9-23 mg/dL Creatinine 1.02 0.700-1.30 mg/dL Glomerular Filtration Rate Calc 99 >90 mL/min BUN/Creatinine Ratio 18.6 10.0-20.0 Serum Glucose 90 74-106 mg/dL Calcium Level 9.2 8.7-10.4 mg/dL Total Bilirubin 0.4 0.2-1.0 mg/dL Aspartate Amino Transferase (AST) 27 13-40 U/L Alanine Aminotransferase (ALT) 52 H 7-40 U/L Alkaline Phosphatase 77 46-116 U/L Total Protein 6.7 5.7-8.2 g/dL Albumin 4.4 3.2-4.8 g/dL Thyroid Stimulating Hormone (TSH) 1.42 0.55-4.78 uIU/mL Urine Color Light-yellow Yellow Urine Clarity Clear Clear Urine pH 5.5 5.0-9.0 Urine Specific [place] 1.025 1.001-1.035 Urine Protein Negative Negative Urine Ketones Negative Negative Urine Blood Negative Negative /uL Urine Nitrite Negative Negative Urine Bilirubin Negative Negative Urine Urobilinogen Normal Negative mg/dL Urine Leukocyte Esterase Negative Negative /uL Urine RBC <1 0 - 3 /hpf Urine Microscopic WBC < 1 0-3 /HPF Urine Squamous Epithelial Cells None seen <5 /hpf Urine Bacteria None seen None Seen /hpf Urine Mucus Few None Seen Urine Glucose Normal Normal mg/dL Urine Opiates Screen Neg NEGATIVE Urine Fentanyl Screen Neg NEGATIVE Urine Barbiturates Screen Neg NEGATIVE Urine Phencyclidine Screen Neg NEGATIVE Urine Amphetamines Screen Neg NEGATIVE Urine Benzodiazepines Screen Neg NEGATIVE Urine Cocaine Screen Neg NEGATIVE Urine Cannabinoids Screen Neg NEGATIVE Assessment/Plan Problem List: (1) Varicocele (2) Left testicular pain Plan pt would benefit from out patient varicocelectomy vs embolization varicocele - scrotal support - pain meds prn (nsaids) - weight loss - avoid standing for prolonged periods - avoid tight pants/belts Urology signing off Plan discussed with: Patient, Other TYRESE KUNZ NP Nov 25, 2024 10:02
--- NOTE | 2024-11-25 11:56 | DVHDS2 ---
Discharge Summary Date of Admission Nov 22, 2024 at 21:26 Date of Discharge: Nov 25, 2024 Admitting Diagnosis left-sided varicocele and prior hydrocele, now presenting with worsening bilateral testicular pain. Labs/Diagnostic Data: Laboratory Results Test 11/23/24 09:03 11/23/24 04:25 11/22/24 18:00 Lactic Acid Level 1.3 mmol/L (0.4-2.0) White Blood Count 7.8 10^3/uL (4.4-10.8) Red Blood Count 4.90 10^6/uL (4.5-5.90) Hemoglobin 14.7 g/dL (13.5-17.5) Hematocrit 43.1 % (41.0-53.0) Mean Corpuscular Volume 87.9 fL (80.0-100.0) Mean Corpuscular Hemoglobin 29.9 pg (28.0-32.0) Mean Corpuscular Hemoglobin Concent 34.0 g/dL (32.0-36.0) Red Cell Distribution Width 12.9 % (11.8-14.3) Platelet Count 231 10^3/uL (140-450) Mean Platelet Volume 8.3 fL (6.9-10.8) Neutrophils (%) (Auto) 61.5 % (37.0-80.0) Lymphocytes (%) (Auto) 29.6 % (10.0-50.0) Monocytes (%) (Auto) 6.8 % (0.0-12.0) Eosinophils (%) (Auto) 1.7 % (0.0-7.0) Basophils (%) (Auto) 0.4 % (0.0-2.0) Neutrophils # (Auto) 4.8 10 ^3/uL (1.6-8.6) Lymphocytes # (Auto) 2.3 10 ^3/uL (0.4-5.4) Monocytes # (Auto) 0.5 10 ^3/uL (0-1.3) Eosinophils # (Auto) 0.1 10 ^3/uL (0-0.8) Basophils # (Auto) 0 10 ^3/uL (0-0.2) Nucleated Red Blood Cells 0.1 % Prothrombin Time 10.7 sec (9.3-11.8) Prothrombin Time INR 1.01 (0.9-1.15) Activated Partial Thromboplast Time 25.4 SEC (24.5-34.5) Sodium Level 138 mmol/L (136-145) Potassium Level 4.0 mmol/L (3.5-5.1) Chloride Level 106 mmol/L (98-107) Carbon Dioxide Level 26 mmol/L (20-31) Anion Gap 6 (5-15) Blood Urea Nitrogen 19 mg/dL (9-23) Creatinine 1.02 mg/dL (0.700-1.30) Glomerular Filtration Rate Calc 99 mL/min (>90) BUN/Creatinine Ratio 18.6 (10.0-20.0) Serum Glucose 90 mg/dL (74-106) Calcium Level 9.2 mg/dL (8.7-10.4) Total Bilirubin 0.4 mg/dL (0.2-1.0) Aspartate Amino Transferase (AST) 27 U/L (13-40) Alanine Aminotransferase (ALT) 52 U/L (7-40) Alkaline Phosphatase 77 U/L (46-116) Total Protein 6.7 g/dL (5.7-8.2) Albumin 4.4 g/dL (3.2-4.8) Thyroid Stimulating Hormone (TSH) 1.42 uIU/mL (0.55-4.78) Urine Color Light-yellow (Yellow) Urine Clarity Clear (Clear) Urine pH 5.5 (5.0-9.0) Urine Specific [place] 1.025 (1.001-1.035) Urine Protein Negative (Negative) Urine Ketones Negative (Negative) Urine Blood Negative /uL (Negative) Urine Nitrite Negative (Negative) Urine Bilirubin Negative (Negative) Urine Urobilinogen Normal mg/dL (Negative) Urine Leukocyte Esterase Negative /uL (Negative) Urine RBC <1 /hpf (0 - 3) Urine Microscopic WBC < 1 /HPF (0-3) Urine Squamous Epithelial Cells None seen /hpf (<5) Urine Bacteria None seen /hpf (None Seen) Urine Mucus Few (None Seen) Urine Glucose Normal mg/dL (Normal) Urine Opiates Screen Neg (NEGATIVE) Urine Fentanyl Screen Neg (NEGATIVE) Urine Barbiturates Screen Neg (NEGATIVE) Urine Phencyclidine Screen Neg (NEGATIVE) Urine Amphetamines Screen Neg (NEGATIVE) Urine Benzodiazepines Screen Neg (NEGATIVE) Urine Cocaine Screen Neg (NEGATIVE) Urine Cannabinoids Screen Neg (NEGATIVE) Other Laboratory Tests 11/23/24 04:25 Brief Hx & Hospital Course: 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 Patient reports he had intermittent testicular discomfort since 2022. At that time he had an ultrasound done and it was showed he had varicocele and hydrocele on his testicle. Patient did not follow up with urologist for further management. Over the past several weeks he had noticed increased pain which has been persistent and now interfere with his daily activity. So he decided to come to the hospital for further evaluation. Denied dysuria, hematuria, fever, chill, nausea, vomiting or weight loss. No prior surgery or history sexually transmitted disease. The patient ultrasound showed No evidence of testicular torsion . Bilateral small epididymal head cysts. Left-sided varicocele.Urologist see the patient and recommend: pt would benefit from out patient varicocelectomy vs embolization varicocele, as right now patient should has scrotal support,pain meds prn, weight loss, avoid standing for prolonged periods, avoid tight pants/belts. So I am going to discharge him home. Advised him to follow up with primary care physician 1-2 weeks. Follow up with urologist as outpatient per schedule for further management of his varicocele. Activity as tolerated. Diet per home diet Physical exam: HEENT: Normocephalic atraumatic pupils equal react to light and accommodation. Extraocular muscles intact, conjunctiva pink, oropharynx moist, no thrush, no exudate. Lymphatic: No lymphadenopathy Cardiovascular exam: S1, S2 was heard. No murmurs, rubs, gallops Lung: Clear on auscultation bilaterally, no wheeze, rale, rhonchi. GI: Abdominal soft, nondistended, nontenderness, positive bowel sounds. Extremity: No crepitus, cyanosis, edema. Pedal pulses present bilateral. Full range of motion. Skin: Normal turgor, no rash. Psych: Alert, oriented x3. Neurology: No focal deficits, cranial nerve II to XII grossly intact. This medical document was created using an electronic medical record system with [employer] direct computerized dictation system. Although this document has been carefully reviewed, there may still be some phonetic and typographical errors. These areas are purely typographical due to imperfections of the software programs, and do not reflect any compromise in the patient's medical care. Condition at Discharge: Stable Final Diagnosis/Problems List left-sided varicocele and prior hydrocele, now presenting with worsening bilateral testicular pain. Discharge Disposition: Home Discharge Statement: "Patient was advised to return to the ER or call 911 if any headaches, dizziness, shortness of breath, chest pain, abdominal pain, bleeding, fevers, or worsening of medical condition. Patient was counseled about treatment plan, medications, possible side effects, patientverbalized understanding. All questions were answered to the best of my ability. This discharge took greater then 30 minutes in planning, reviewing documentation, counseling the patient, and discussing with other team members." ASSESSMENT ASSESSMENT Assessment Date of Service: Nov 25, 2024 Billing Provider: JEIMY DONNELLY MD Common Visit Codes: 47041-ZWM/OBS DISCH DAY >30min JEIMY DONNELLY MD Nov 25, 2024 11:56
[2024-11-25] MEDS ORDERED: IBUP-1456 PO (11:57)
[2024-11-25 13:00] VITALS: BP 140/90; PULSE 84; RESP 17; TEMP 98; O2SAT 98
== END 2024-11-25 13:20 | disposition home or self-care (01) | DRG 501 ==
LOC: ER 17:39 → OVERFLOW 21:26 → WEST WING 21:31
PROVIDERS: ADMIT Internal Medicine; ATTEND Internal Medicine
DX: I86.1 Scrotal varices (principal); E66.01 Morbid (severe) obesity due to excess calories; Z79.1 Long term (current) use of non-steroidal anti-inflammatories (NSAID); Z79.2 Long term (current) use of antibiotics; Z79.891 Long term (current) use of opiate analgesic; Z79.899 Other long term (current) drug therapy; Z83.3 Family history of diabetes mellitus; Z68.35 Body mass index [BMI] 35.0-35.9, adult
CPT/HCPCS: 36415; 76870; 80053; 80307; 81001; 83605; 84443; 85025; 85610; 85730; 96372; G0378; J1885

== ENCOUNTER 2025-03-07 07:53 | Outpatient (CLI) | payer MEDICAID ==
[~2025-03-07] VITALS: Ht 167.6 cm; Wt 99.8 kg
[2025-03-07] VITALS (8 sets, daily range): BP systolic 115–134; BP diastolic 76–94; PULSE 58–72; RESP 11–16; TEMP 97.8; O2SAT 93–98
[~2025-03-07 07:53] MED LIST changes: -ACE3T PO; -CIPR-173 PO; -FAMO20TA10 PO; -IBUP-1455 PO; -IBUP1TAB5 PO; -ZOFR4T PO
[2025-03-07] MEDS ORDERED: MIDAZOLAM HCL 2MG/2ML 2ml VIAL (1mg/ml) ONE ×2 (08:32→12:01)
[2025-03-07] MEDS ORDERED: fentaNYL CITRATE 100 MCG/2 ML VL ONE ×2 (08:32→12:01)
[2025-03-07] MEDS ORDERED: LIDOCAINE 2%HCL (LOCAL ANESTH.) INJ 20ML MDV ONE ×2 (08:33→12:02)
[2025-03-07] MEDS ORDERED: IODIXANOL 320MG/ML 100ML BTL IV ONE (11:44)
[2025-03-07] MEDS ORDERED: GELATIN 1 SPONGE SIZE 100 TOP ONE (12:01)
[2025-03-07] MEDS ORDERED: GELATIN 1 SPONGE SIZE 50 TOP ONE (12:35)
--- NOTE | 2025-03-07 15:07 | DVH ---
PROCEDURE: Pelvic vein embolization Procedural Personnel Attending physician(s): Matt Larkin Fellow physician(s): None Resident physician(s): None Advanced practice provider(s): None Pre-procedure diagnosis: Left varicocele Post-procedure diagnosis: Same Indication: Recurrence after surgical ligation Additional clinical history: None Complications: No immediate complications. IMPRESSION: Embolization of left-sided varicocele. Plan: Follow up as an outpatient with urologic service as needed. PROCEDURE SUMMARY: - Venous access with ultrasound guidance - Left renal venography: Performed as described below - Gonadal venography: Unilateral - Superselective venography: Performed as described below - Embolization and post-embolization venography as described below - Additional procedure(s): None PROCEDURE DETAILS: Pre-procedure Consent: Informed consent for the procedure including risks, benefits and alternatives was obtained a nd time-out was performed prior to the procedure. Preparation: The site was prepared and draped using maximal sterile barrier technique including cutan eous antisepsis. Anesthesia/sedation Level of anesthesia/sedation: Moderate sedation (conscious sedation) Anesthesia/sedation administered by: Independent trained observer under attending supervision with co ntinuous monitoring of the patient s level of consciousness and physiologic status Total intra-service sedation time (minutes): 60 Access Local anesthesia was administered. The vessel was sonographically evaluated and judged to be patent. Real time ultrasound was used to visualize needle entry into the vessel and a permanent image was not stored. A 6 [place] sheath was placed. Vein accessed: Right common femoral vein Access technique: Micropuncture set with 21 gauge needle Venography The gonadal venous system was catheterized using 5 [place] C2 catheter/0.035 inch [place] Advantage wire /2.5 [place] Lantern microcatheter/0.014 inch Transend microwire. Indication for venography: Diagnostic angiography - There was no prior catheter-based angiographic st udy available and a full diagnostic study was performed. The decision to intervene was based on the d iagnostic study. Vessel catheterized: Left renal vein Findings: Slight reflux into the left gonadal vein at the most cranial aspect of the gonadal vein Vessel catheterized: Left gonadal vein Findings: 2 parallel channels at the level of the inguinal ligament, with positive reflux towards the pampiniform plexus Vessel catheterized: Superselective branch of left gonadal vein Findings: Positive reflux towards the pampiniform plexus Left gonadal vein embolization Catheter position for embolization #1: Left gonadal vein at the level of the inguinal ligament/medial femoral head - Embolic(s): Penumbra POD 5mm x 30cm, penumbra packing coil 60cm - Angiographic endpoint: Complete stasis (static contrast column for at least 5 heartbeats) Catheter position for embolization #2: Mid gonadal vein - Embolic(s): Gelfoam slurry (approximately 2.5cc), penumbra packing coil 60 cm, penumbra packing coi l 30 cm - Angiographic endpoint: Near-stasis (not static, but contrast visible for at least 5 heartbeats) Catheter position for embolization #3: Left gonadal vein near the renal vein - Embolic(s): Gelfoam slurry (approximately 1cc), penumbra packing coil 60cm, Penumbra Phyllis coil 6mm x 20cm - Angiographic endpoint: Complete stasis (static contrast column for at least 5 heartbeats) Foam embolization Catheter position: Mid gonadal vein, proximal gonadal vein Proximal occlusion device: Not applicable Sclerosant used: Gelfoam slurry Additional sclerotherapy details: NA Sclerosant volume (mL): 3.5 Completion venography Vessel catheterized: Left renal vein Findings: No reflux of contrast into the left gonadal vein with Valsalva Closure The sheath was removed and hemostasis was achieved with manual compression. A sterile dressing was ap plied. Contrast Contrast agent: Visipaque 320 Contrast volume (mL): 30 Radiation Dose Fluoroscopy time (minutes): 14.8 Reference air kerma (mGy): 166 Kerma area product (cGy-cm2): 1920.51 Additional Details Additional description of procedure: None Registry event: V/3/g Device used: None Equipment details: None Specimens removed: None Estimated blood loss (mL): Less than 10 Standardized report: [id number] Attestation Signer name: Matt Larkin I attest that I was present for the entire procedure. I reviewed the stored images and agree with the report as written.
== END 2025-03-07 17:00 | disposition home or self-care (01) ==
LOC: CATH 07:53
PROVIDERS: ATTEND Family Medicine
DX: I86.1 Scrotal varices (principal); Z79.899 Other long term (current) drug therapy; Z83.3 Family history of diabetes mellitus
CPT/HCPCS: 37241; C1769; C1887; C1894; J1644; J2250; J3010; Q9967; 76000; 99152; 99153

== ENCOUNTER 2025-03-16 22:53 | Emergency (ER) | payer MEDICAID ==
[~2025-03-16] VITALS: Ht 167.6 cm; Wt 97.2 kg
--- NOTE | 2025-03-16 23:21 | ED.PDOC ---
History of Present Illness(SKN HPI Comments PT CAME IN FOR WOUND CHECK TO HIS GROIN S/P VARICOCELE SURGERY. PT C/O 06/27 PAIN TO LEFT TESTICLE AND RIGHT GROIN. PT A&OX4, PT TACHY AT 110, VSS, RR EVEN AND UNLABORED ON RA. DENIES FEVER, CHILLS, NAUSEA, VOMITING, BURNING WITH URINATION, ABDOMINAL PAIN, BACK PAIN OR FLANK PAIN. Time Seen by MD: 22:56 Primary Care Provider: UNKNOWN History of Present Illness: Nurses Notes, Medications, Allergies Allergies: Coded Allergies: NO KNOWN ALLERGIES (Unverified , 03/05/25) Home Meds Active Scripts Ibuprofen (Ibuprofen) 800 Mg Tab, 1 TAB PO TID PRN, #90 TAB 1 Refill Prov:JEIMY DONNELLY MD 11/25/24 Past Medical History PAST MEDICAL HISTORY: Denies Surgical History: Denies all surgeries Family History Family History: Reviewed,noncontributory to illness Social History Smoker: Non-Smoker Alcohol: Denies ETOH Use Drugs: Denies Drug Use Lives In: Home Constitutional: denies: chills, diaphoresis, fatigue, fever, malaise, sweats, weakness, others EENTM: denies: blurred vision, double vision, ear bleeding, ear discharge, ear drainage, ear pain, ear ringing, eye pain, eye redness, hearing loss, mouth pa in, mouth swelling, nasal discharge, nose bleeding, nose congestion, nose pain, photophobia, tearing, throat pain, throat swelling, voice changes, others Respiratory: denies: cough, hemoptysis, orthopnea, SOB at rest, shortness of breath, SOB with excertion, stridor, wheezing, others Cardiovascular: denies: chest pain, dizzy spells, diaphoresis, Dyspnea on exertion, edema, irregular heart beat, left arm pain, lightheadedness, palpitations, PND, syncope, others Gastrointestinal: denies: abdomen distended, abdominal pain, blood streaked bowels, constipated, diarrhea, dysphagia, difficulty swallowing, hematemesis, melena, nausea, poor appetite, poor fluid intake, rectal bleeding, rectal pain, vomiting, others Genitourinary: reports: pain, testicle pain, testicle swelling; denies: burning, dysuria, flank pain, frequency, hematuria, incontinence, penile discharge, penile sore, urgency, others Neurological: denies: dizziness, fainting, headache, left sided numbness, left sided weakness, numbness, paresthesia, pre-existing deficit, right sided numbness, right sided weakness, seizure, speech problems, tingling, tremors, weakness, others Musculoskeletal: denies: back pain, gout, joint pain, joint swelling, muscle pain, muscle stiffness, neck pain, others Integumetry: denies: bruises, change in color, change in hair/nails, dryness, laceration, lesions, lumps, rash, wounds, others Hematologic/Lymphatic: denies: anemia, blood clots, easy bleeding, easy bruising, swollen glands, others Endocrine: denies: excessive hunger, excessive sweating, excessive thirst, excessive urination, flushing, intolerance to cold, intolerance to heat, unexplained weight gain, unexplained weight loss, others Psychiatric: denies: anxiety, bipolar disorder, depression, hopeless, panic disorder, schizophrenia, sleepless, suicidal, others Physical Exam General Appearance: No Apparent Distress, Normal HEENT: Pharynx Normal Neck: Full Range of Motion, Non-Tender Respiratory: Lungs Clear, No Respiratory Distress, Normal Breath Sounds Cardiovascular: No Murmur, Normal Peripheral Pulses, Regular Rate/Rhythm Breast Exam: Deferred Gastrointestinal: No Organomegaly, Non Tender, No Pulsatile Mass, Normal Bowel Sounds, Soft Genitalia: Scrotum (NO NOTED EDEMA, OR ERYTHEMA LEFT TESTICLE TENDER ON PALPATION. SURGICAL SITE IS DRY AND CLEAN NO NOTED ERYTHEMA OR DRAINAGE TRACE ECCHYMOSIS) Pelvic: Deferred Rectal: Deferred Extremities: Normal capillary refill, Normal inspection, Normal range of motion, Non-tender, No pedal edema Musculoskeletal : Apperance: Normal Neurologic: Alert, No Motor Deficits, Normal Affect, Normal Mood, No Sensory Deficits Cerebellar Function: Normal Reflexes: Normal Skin: Dry, Normal Color, Warm Lymphatic: No Adenopathy Was a procedure done? Was a procedure done?: No Differential Diagnosis (INTG) Differential Diagnosis: Cellulitis, Hematoma Differential Diagnosis: Abscess X-Ray, Labs, Meds, VS Vital Signs Date Time Temp Pulse Resp B/P (MAP) Pulse Ox O2 Delivery O2 Flow Rate FiO2 03/16/25 23:15 98.8 110 16 121/80 (94) 96 98.8 Lab Test 03/16/25 23:27 Range/Units Urine Color Yellow Yellow Urine Clarity Clear Clear Urine pH 6.0 5.0-9.0 Urine Specific [place] 1.036 H 1.001-1.035 Urine Protein 1+ H Negative Urine Ketones Trace Negative Urine Blood Negative Negative /uL Urine Nitrite Negative Negative Urine Bilirubin Negative Negative Urine Urobilinogen 2 H Negative mg/dL Urine Leukocyte Esterase Negative Negative /uL Urine RBC 1 0 - 3 /hpf Urine Microscopic WBC < 1 0-3 /HPF Urine Squamous Epithelial Cells None seen <5 /hpf Urine Bacteria None seen None Seen /hpf Urine Mucus Few None Seen Urine Glucose Normal Normal mg/dL X-Ray, Labs, Meds, VS Comment TESTICULAR ULTRASOUND SHOWS NO SIGNS OF INFECTION, SWELLING OR SURGICAL COMPLICATIONS NO NOTED ABSCESSES OR HEMATOMAS. LIKELY POSTSURGICAL PAIN. SCRIPT TRIAL OF INDOMETHACIN ADVISED TO TAKE MEDICATIONS PRESCRIBED SIDE E FFECTS DISCUSSED. ADVISED TO CONTINUE WITH ICE AND SUPPORTIVE UNDERWEAR. ADVISED TO CALL THE UROLOGY SURGEON ON MONDAY AND SCHEDULE FOLLOW UP. PATIENT WAS ADVISED ON ER RETURN PRECAUTIONS INDICATES UNDERSTANDING AND AGREES WITH DISCHARGE PLAN OF CARE. Time of 1ST Reevaluation: 23:20 Reevaluation 1ST: Unchanged Time of 2ND Reevaluation: 02:20 Reevaluation 2ND: Improved Patient Education/Counseling: Diagnosis, Treatment, Prognosis, Need For Follow Up Family Education/Counseling: No Family Present SEPSIS Sepsis Screen Physician Orders Testicular Ultrasound (03/16/25 23:28) Vital Signs Date Time Temp Pulse Resp B/P (MAP) Pulse Ox O2 Delivery O2 Flow Rate FiO2 03/16/25 23:15 98.8 110 16 121/80 (94) 96 98.8 Departure 1 Departure Time of Disposition: 02:20 Impression: Primary Impression: Postoperative pain Disposition: 01 HOME / SELF CARE / HOMELESS Condition: Stable e-Prescriptions Indomethacin (Indomethacin) 50 Mg Cap 1 CAP PO TID PRN for 4 Days, #12 CAP Prov: KALA SAUCEDO 03/17/25 Discharged With: Self Critical Care Note Critical Care Time?: No Stability Stability form required: KALA Estrella Mar 16, 2025 23:21
--- NOTE | 2025-03-17 00:58 | DVH ---
ULTRASOUND OF SCROTUM AND CONTENTS. INDICATION: left groin/testicle pain status post surgery COMPARISON: US TESTICULAR ULTRASOUND on DOS: 11/22/24, US TESTICULAR ULTRASOUND on DOS: 05/02/24, US RODRI TICULAR ULTRASOUND on DOS: 02/10/24, US TESTICULAR ULTRASOUND on DOS: 05/27/23, US TESTICULAR ULTRASOUND on DOS: 02/09/23 TECHNIQUE: Multiple real-time grayscale sonographic and color and duplex Doppler images of the scrotu m and its contents were obtained. FINDINGS: The right testicle measures 4.6 x 3.6 x 2.3 cm. The left testicle measures 4.5 x 3.0 x 2.0 cm. Both testicles demonstrate homogeneous echotexture without evidence of focal lesions. The right epididymal head measures 1.4 cm. The left epididymal head measures 1.1 cm. Bilateral epidid ymal cysts measure up to 6 mm on the right and 3 mm on the left. Subsequent color and duplex Doppler interrogation of the testes demonstrated symmetric normal vascula r flow to both testicles. No focal areas of hyperemia were seen. IMPRESSION: 1. No evidence of torsion, epididymitis, and/or orchitis.
[2025-03-17 01:19] LABS: Urine Bacteria None Seen /hpf (None Seen)
[2025-03-17 01:40] VITALS: BP 118/68; PULSE 68; RESP 20; TEMP 98.8; O2SAT 96
[2025-03-17 02:06] LABS: Urine Blood Negative /uL (Negative); Urine Clarity Clear (Clear); Urine Color Yellow (Yellow); Urine Mucus FEW (None Seen); Urine Protein, UAD 1+ (Negative); Urine Specific Gravity 1.036 (1.001-1.035); Urine Squamous Epithelial Cell None Seen /hpf (<5); Urine Urobilinogen 2 mg/dL (Negative); Urine WBC < 1 /HPF (0-3)
[2025-03-17] MEDS ORDERED: INDO50CA82 PO (02:41)
== END 2025-03-17 02:51 | disposition home or self-care (01) ==
LOC: ER 22:53
DX: G89.18 Other acute postprocedural pain (principal); Z79.899 Other long term (current) drug therapy
CPT/HCPCS: 76870; 81001

== ENCOUNTER 2025-05-20 11:46 | Emergency (ER) | payer MEDICAID ==
[~2025-05-20] VITALS: Ht 170.2 cm; Wt 95.7 kg
--- NOTE | 2025-05-20 12:26 | ED.PDOC ---
GI ASSESSMENT HPI Comments 34-year-old male with a history of varicocele status post coiling procedure complaining of right upper quadrant pain since 8:00 a.m., constant, sharp, without associated fever, nausea or vomiting. Patient does note constipation but states his last bowel movement was last night. Patient also reports he started an increased dose of Wegovy 4 days ago. Chief Complaint: Abdominal Pain Time Seen by MD: 12:20 Primary Care Provider: UNKNOWN Reviewed Notes: Nurses Notes, Medications, Allergies Allergies: Coded Allergies: NO KNOWN ALLERGIES (Unverified , 03/05/25) Home Meds Active Scripts Docusate Sodium (Colace) 100 Mg Cap, 1 CAP PO HS PRN, #30 CAP prn constipation Prov:ANGELA DE LA O MD 05/20/25 Ibuprofen Micronized (Ibuprofen) 600 Mg Tab, 600 MG PO Q6HP PRN, #30 TAB prn pain, take with food Prov:ANGELA DE LA O MD 05/20/25 Dicyclomine Hcl (BENTYL CAPSULE) 10 Mg Cp, 2 CAP PO Q6HP PRN, #30 CAP 11 Refills Prov:ANGELA DE LA O MD 05/20/25 Ibuprofen (Ibuprofen) 800 Mg Tab, 1 TAB PO TID PRN, #90 TAB 1 Refill Prov:JEIMY DONNELLY MD 11/25/24 Information Source: Patient Mode of Arrival: Ambulatory Timing: Days Duration: Since onset Prehospital treatment: None Vomitus: None Stool: Impaction Severity: Moderate Recent: None Recent Hx of: Abdominal Operations Pain Location: RUQ Modifying Factors: Nothing Associated sign and symptoms: Abdominal Pain Past Medical History PAST MEDICAL HISTORY: Denies Surgical History (Other): Varicocele coil procedure Family History Family History: Reviewed,noncontributory to illness Social History Smoker: Non-Smoker Alcohol: Denies ETOH Use Drugs: Denies Drug Use Lives In: Home Constitutional: denies: chills, diaphoresis, fatigue, fever, malaise, sweats, weakness, others EENTM: denies: blurred vision, double vision, ear bleeding, ear discharge, ear drainage, ear pain, ear ringing, eye pain, eye redness, hearing loss, mouth pain, mouth swelling, nasal discharge, nose bleeding, nose congestion, nose pain, photophobia, tearing, throat pain, throat swelling, voice changes, others Respiratory: denies: cough, hemoptysis, orthopnea, SOB at rest, shortness of breath, SOB with excertion, stridor, wheezing, others Cardiovascular: denies: chest pain, dizzy spells, diaphoresis, Dyspnea on exertion, edema, irregular heart beat, left arm pain, lightheadedness, palpitations, PND, syncope, others Gastrointestinal: reports: abdominal pain, constipated; denies: abdomen distended, blood streaked bowels, diarrhea, dysphagia, difficulty swallowing, hematemesis, melena, nausea, poor appetite, poor fluid intake, rectal bleeding, rectal pain, vomiting, others Genitourinary: denies: burning, dysuria, flank pain, frequency, hematuria, incontinence, penile discharge, penile sore, pain, testicle pain, testicle swelling, urgency, others Neurological: denies: dizziness, fainting, headache, left sided numbness, left sided weakness, numbness, paresthesia, pre-existing deficit, right sided numbness, right sided weakness, seizure, speech problems, tingling, tremors, weakness, others Musculoskeletal: denies: back pain, gout, joint pain, joint swelling, muscle pain, muscle stiffness, neck pain, others Integumetry: denies: bruises, change in color, change in hair/nails, dryness, laceration, lesions, lumps, rash, wounds, others Allergic/Immunocompromised: denies: Difficulty Healing, Frequent Infections, Hives, Itching, others Hematologic/Lymphatic: denies: anemia, blood clots, easy bleeding, easy bruisi ng, swollen glands, others Endocrine: denies: excessive hunger, excessive sweating, excessive thirst, exce ssive urination, flushing, intolerance to cold, intolerance to heat, unexplained weight gain, unexplained weight loss, others Psychiatric: denies: anxiety, bipolar disorder, depression, hopeless, panic disorder, schizophrenia, sleepless, suicidal, others All Other Systems: Reviewed and Negative Physical Exam General Appearance: No Apparent Distress HEENT: Other (Pupils and face symmetric. Moist mucous membranes.) Neck: Full Range of Motion, Normal Inspection Respiratory: Lungs Clear, No Accessory Muscle Use, No Respiratory Distress, Normal Breath Sounds Cardiovascular: No Edema, No JVD, Regular Rate/Rhythm Breast Exam: Deferred Gastrointestinal: RUQ, Soft, Tenderness Genitalia: Deferred Pelvic: Deferred Rectal: Deferred Extremities: Normal inspection, Normal range of motion, Non-tender, No pedal edema Neurologic: Alert (Oriented x4), Normal Affect, Normal Mood, Other (Ambulatory) Cerebellar Function: NOT DONE Reflexes: NOT DONE Skin: Dry, Normal Color, Warm Lymphatic: NOT DONE Was a procedure done? Was a procedure done?: No GI differential Dx Differential Diagnosis: Cholangitis, Cholecystitis, Constipation, Diverticular disease, Gastritis/PUD, Gastroenteritis, Inflammatory BD, Ischemic Bowel, Pancreatitis, UTI, Urolithiasis, Bacterial, Viral, Impaction, Stress Ulcer X-Ray, Labs, Meds, VS Vital Signs Date Time Temp Pulse Resp B/P (MAP) Pulse Ox O2 Delivery O2 Flow Rate FiO2 05/20/25 15:24 75 19 111/77 05/20/25 14:47 88 19 106/78 05/20/25 14:47 98.2 88 19 106/78 (87) 97 98.2 05/20/25 11:47 97.9 94 20 119/85 96 97.9 Lab Test 05/20/25 12:57 Range/Units White Blood Count 7.8 4.4-10.8 10^3/uL Red Blood Count 5.57 4.5-5.90 10^6/uL Hemoglobin 16.7 13.5-17.5 g/dL Hematocrit 49.3 41.0-53.0 % Mean Corpuscular Volume 88.5 80.0-100.0 fL Mean Corpuscular Hemoglobin 30.1 28.0-32.0 pg Mean Corpuscular Hemoglobin Concent 34.0 32.0-36.0 g/dL Red Cell Distribution Width 13.1 11.8-14.3 % Platelet Count 240 140-450 10^3/uL Mean Platelet Volume 8.5 6.9-10.8 fL Neutrophils (%) (Auto) 66.7 37.0-80.0 % Lymphocytes (%) (Auto) 23.9 10.0-50.0 % Monocytes (%) (Auto) 7.1 0.0-12.0 % Eosinophils (%) (Auto) 1.8 0.0-7.0 % Basophils (%) (Auto) 0.5 0.0-2.0 % Neutrophils # (Auto) 5.2 1.6-8.6 10 ^3/uL Lymphocytes # (Auto) 1.9 0.4-5.4 10 ^3/uL Monocytes # (Auto) 0.6 0-1.3 10 ^3/uL Eosinophils # (Auto) 0.1 0-0.8 10 ^3/uL Basophils # (Auto) 0 0-0.2 10 ^3/uL Nucleated Red Blood Cells 0.1 % Sodium Level 142 136-145 mmol/L Potassium Level 4.8 3.5-5.1 mmol/L Chloride Level 106 98-107 mmol/L Carbon Dioxide Level 28 20-31 mmol/L Anion Gap 8 5-15 Blood Urea Nitrogen 12 9-23 mg/dL Creatinine 0.96 0.700-1.30 mg/dL Glomerular Filtration Rate Calc 106 >90 mL/min BUN/Creatinine Ratio 12.5 10.0-20.0 Serum Glucose 85 74-106 mg/dL Calcium Level 9.8 8.7-10.4 mg/dL Total Bilirubin 0.4 0.2-1.0 mg/dL Aspartate Amino Transferase (AST) 25 13-40 U/L Alanine Aminotransferase (ALT) 42 H 7-40 U/L Alkaline Phosphatase 86 46-116 U/L Total Protein 8.0 5.7-8.2 g/dL Albumin 5.2 H 3.2-4.8 g/dL Lipase 53 12-53 U/L Current Medications Medications (Trade) Dose Ordered Sig/Aruna Route Start Time Stop Time Status Last Admin Morphine Sulfate 4 mg ONCE ONCE IV 05/20/25 12:30 05/20/25 12:31 DC 05/20/25 14:47 Ondansetron HCl (Zofran) 4 mg ONCE ONCE IV 05/20/25 12:30 05/20/25 12:31 DC 05/20/25 14:36 Sodium Chloride 1,000 ml @ 1,000 mls/hr Q1H ONCE IV 05/20/25 12:30 05/20/25 13:29 DC 05/20/25 14:36 Pantoprazole Sodium (Protonix) 40 mg ONCE ONCE IV 05/20/25 12:30 05/20/25 12:31 DC 05/20/25 14:36 [facility] [id number] [place] [id number] Ph: [phone] DIAGNOSTIC IMAGING Diagnostic Imaging Report : [id number] Signed PATIENT: ESME MEDRANO ACCT: [id number] UNIT: [id number] : 1990 LOC: ER ROOM / BED: / AGE / SEX: 34 / M ADM STATUS: REG ER SERVICE 1223 ORDERING PHYSICIAN: ANGELA DE LA O MD PROCEDURE(s): ABPL - CT AB PEL WO CON-NO ORAL OR IV REASON: ruq pain ORDER NUMBER(s): [id number], ACCESSION NUMBER(s): [id number] CLINICAL INFORMATION: Right upper quadrant pain. TECHNIQUE: Axial CT images of the abdomen and pelvis were obtained without IV contrast. Coronal and sagittal reformatted images were obtained, reviewed, and stored. Evaluation of the parenchymal organs is limited without IV contrast. Evaluation of the bowel and mesentery is limited without oral contrast. All CT scans at this medical facility are performed using dose modulation techniques as appropriate to a performed exam including the following: Automated exposure control was utilized; adjustment of the MA and/or KV according to patient size; and use of iterative reconstruction technique. CTDIvol = 16.07 mGy DLP = 958.76 mGy-cm COMPARISON: CT ABD/PEL on DOS: 07/20/23, CT ABD/PEL on DOS: 07/09/23, CT CT AB PEL WO CON-NO ORAL OR IV on DOS: 02/09/23 FINDINGS: Lung bases: Lung bases are clear. Liver: Hepatic steatosis. Biliary: No calcified gallstones or biliary ductal dilatation. Spleen: Unremarkable. Pancreas: Grossly unremarkable in its noncontrast enhanced appearance. Adrenal glands: Unremarkable. No mass. Kidneys: No hydronephrosis. No renal or ureteral calculi. Aorta/Vascular: No aneurysm or significant calcification. There is coil material along the course of the left gonadal vein. Retroperitoneum: No mass or lymphadenopathy. Bowel/mesentery: No small bowel obstruction. No free air or free fluid. Appendix is visualized and appears unremarkable. Scattered small colonic diverticula without adjacent inflammatory changes to suggest diverticulitis. Pelvic organs: Grossly unremarkable. Bladder: Underdistended and not well evaluated. Abdominal wall: No mass or hernia. Bones: No acute fracture or suspicious intraosseous lesion. IMPRESSION: 1. No acute abnormality identified in the abdomen or pelvis. 2. Hepatic steatosis. 3. Scattered small colonic diverticula without adjacent inflammatory changes to suggest diverticulitis. 4. Vascular coil material within the left gonadal vein. ATED BY: BROWN GARDNER DO DICTATED DATE/TIME: 05/20/251338 SIGNED BY: BROWN GARDNER DO SIGNED DATE/TIME: 05/20/251338 CC: X-Ray, Labs, Meds, VS Comment 34-year-old male with a history of varicocele status post coil procedure complaining of right upper quadrant pain associated with constipation Vitals unremarkable Exam remarkable for right upper quadrant tenderness to palpation. No rebound, guarding or Melendrez's sign. Rhythm strip independently interpreted by me: Rhythm, rate 94, no ectopy. CT abdomen and pelvis IMPRESSION: 1. No acute abnormality identified in the abdomen or pelvis. 2. Hepatic steatosis. 3. Scattered small colonic diverticula without adjacent inflammatory changes to suggest diverticulitis. 4. Vascular coil material within the left gonadal vein. CBC, CMP and lipase unremarkable Patient treated with the following in the ED: 1 L 0.9 normal saline IV bolus, morphine 4 mg IV, Zofran 4 mg IV, Protonix 40 mg IV On re-evaluation, patient states pain has improved. Vitals were stable. Workup is essentially unremarkable. Patient's symptoms may perhaps be due to the increased dose of Wegovy. Patient appears stable for discharge with close outpatient follow-up with his primary physician for possible medication dosing adjustment. Rx Bentyl, ibuprofen, Colace Time of 1ST Reevaluation: 12:50 Reevaluation 1ST: Unchanged Patient Education/Counseling: Diagnosis, Treatment Family Education/Counseling: No Family Present SEPSIS Sepsis Screen Date sepsis recognized/suspect: May 20, 2025 Time Sepsis recognized/suspect: 1145 Recent Procedure: No On Antibiotic Therapy: No Respiratory Rate >20: No Heart Rate >90: No Temp<36 C (96.8 F) or >38.3 C: No SBP <90 or MAP <65 mmHG: No New Acute Mental Status Change: No Is the patient on CPAP, BIPAP,: No Physician Orders Urinalysis (05/20/25 12:23) Ct Ab Pel Wo Con-No Oral Or Iv (05/20/25 12:23) Vital Signs Date Time Temp Pulse Resp B/P (MAP) Pulse Ox O2 Delivery O2 Flow Rate FiO2 05/20/25 15:24 75 19 111/77 05/20/25 14:47 88 19 106/78 05/20/25 14:47 98.2 88 19 106/78 (87) 97 98.2 05/20/25 11:47 97.9 94 20 119/85 96 97.9 Laboratory Tests Test 05/20/25 12:57 White Blood Count 7.8 10^3/uL (4.4-10.8) Medications Medications Dose Ordered Sig/Aruna Route Start Time Stop Time Status Last Admin Dose Admin Morphine Sulfate 4 mg ONCE ONCE IV 05/20/25 12:30 05/20/25 12:31 DC 05/20/25 14:47 Ondansetron HCl 4 mg ONCE ONCE IV 05/20/25 12:30 05/20/25 12:31 DC 05/20/25 14:36 Pantoprazole Sodium 40 mg ONCE ONCE IV 05/20/25 12:30 05/20/25 12:31 DC 05/20/25 14:36 Sodium Chloride 1,000 ml @ 1,000 mls/hr Q1H ONCE IV 05/20/25 12:30 05/20/25 13:29 DC 05/20/25 14:36 Departure 1 Departure Time of Disposition: 15:00 Impression: Primary Impression: Right upper quadrant abdominal pain Disposition: HOME / SELF CARE / HOMELESS Condition: Stable Additional Instructions: Your blood tests were essentially unremarkable. Your CT scan did not show any acute finding that would explain your symptoms. Your symptoms may be a side effect of the increased dose of Wegovy. I have prescribed medication for your symptoms. Follow-up with your primary doctor in 1-2 days for possible medication dose adjustment and for general re-evaluation. Return to ER for persistent or worsening symptoms. [place] [id number] Ph: [phone] DIAGNOSTIC IMAGING Diagnostic Imaging Report : [id number] Signed PATIENT: ESME MEDRANO ACCT: [id number] UNIT: [id number] : 1990 LOC: ER ROOM / BED: / AGE / SEX: 34 / M ADM STATUS: REG ER SERVICE 1223 ORDERING PHYSICIAN: ANGELA DE LA O MD PROCEDURE(s): ABPL - CT AB PEL WO CON-NO ORAL OR IV REASON: ruq pain ORDER NUMBER(s): [id number], ACCESSION NUMBER(s): [id number] CLINICAL INFORMATION: Right upper quadrant pain. TECHNIQUE: Axial CT images of the abdomen and pelvis were obtained without IV contrast. Coronal and sagittal reformatted images were obtained, reviewed, and stored. Evaluation of the parenchymal organs is limited without IV contrast. Evaluation of the bowel and mesentery is limited without oral contrast. All CT scans at this medical facility are performed using dose modulation techniques as appropriate to a performed exam including the following: Automated exposure control was utilized; adjustment of the MA and/or KV according to patient size; and use of iterative reconstruction technique. CTDIvol = 16.07 mGy DLP = 958.76 mGy-cm COMPARISON: CT ABD/PEL on DOS: 07/20/23, CT ABD/PEL on DOS: 07/09/23, CT CT AB PEL WO CON-NO ORAL OR IV on DOS: 02/09/23 FINDINGS: Lung bases: Lung bases are clear. Liver: Hepatic steatosis. Biliary: No calcified gallstones or biliary ductal dilatation. Spleen: Unremarkable. Pancreas: Grossly unremarkable in its noncontrast enhanced appearance. Adrenal glands: Unremarkable. No mass. Kidneys: No hydronephrosis. No renal or ureteral calculi. Aorta/Vascular: No aneurysm or significant calcification. There is coil material along the course of the left gonadal vein. Retroperitoneum: No mass or lymphadenopathy. Bowel/mesentery: No small bowel obstruction. No free air or free fluid. Appendix is visualized and appears unremarkable. Scattered small colonic diverticula without adjacent inflammatory changes to suggest diverticulitis. Pelvic organs: Grossly unremarkable. Bladder: Underdistended and not well evaluated. Abdominal wall: No mass or hernia. Bones: No acute fracture or suspicious intraosseous lesion. IMPRESSION: 1. No acute abnormality identified in the abdomen or pelvis. 2. Hepatic steatosis. 3. Scattered small colonic diverticula without adjacent inflammatory changes to suggest diverticulitis. 4. Vascular coil material within the left gonadal vein. e-Prescriptions Docusate Sodium (Colace) 100 Mg Cap 1 CAP PO HS PRN, #30 CAP prn constipation Prov: ANGELA DE LA O MD 05/20/25 Ibuprofen Micronized (Ibuprofen) 600 Mg Tab 600 MG PO Q6HP PRN, #30 TAB prn pain, take with food Prov: ANGELA DE LA O MD 05/20/25 Dicyclomine Hcl (BENTYL CAPSULE) 10 Mg Cp 2 CAP PO Q6HP PRN, #30 CAP 11 Refills Prov: ANGELA DE LA O MD 05/20/25 Discharged With: Relative Critical Care Note Critical Care Time?: No Stability Stability form required: No Heart Score Heart Score: Heart Score Response (Comments) Value History N/A 0 EKG N/A 0 Age N/A 0 Risk Factors N/A 0 Troponin N/A 0 Total 0 I personally scribed for ANGELA DE LA O MD ([email or web address]) on 05/20/25 at 12:26. Electronically submitted by Betty Spicer ([email or web address]). I personally scribed for ANGELA DE LA O MD ([email or web address]) on 05/20/25 at 13:57. Electronically submitted by Betty Spicer ([email or web address]). ANGELA DE LA O MD May 20, 2025 12:26
[2025-05-20 13:14] LABS: Hematocrit 49.3 % (41.0-53.0); Hemoglobin 16.7 g/dL (13.5-17.5); Mean Corpuscular Hemoglobin 30.1 pg (28.0-32.0); Mean Corpuscular Volume 88.5 fL (80.0-100.0); Nucleated Red Blood Cells % 0.1 %
[2025-05-20 13:35] LABS: Alkaline Phosphatase 86 U/L (46-116); Anion Gap 8 (5-15); BUN/Creatinine Ratio 12.5 (10.0-20.0); Bilirubin, Total 0.4 mg/dL (0.2-1.0); Blood Urea Nitrogen 12 mg/dL (9-23); Calcium 9.8 mg/dL (8.7-10.4); Carbon Dioxide 28 mmol/L (20-31); Chloride 106 mmol/L (98-107); Glucose 85 mg/dL (74-106); Potassium 4.8 mmol/L (3.5-5.1); Sodium 142 mmol/L (136-145); Total Protein 8.0 g/dL (5.7-8.2)
[2025-05-20 13:36] LABS: Alanine Aminotransferase 42 U/L (7-40); Albumin 5.2 g/dL (3.2-4.8); Lipase 53 U/L (12-53)
--- NOTE | 2025-05-20 13:42 | DVH ---
CLINICAL INFORMATION: Right upper quadrant pain. TECHNIQUE: Axial CT images of the abdomen and pelvis were obtained without IV contrast. Coronal and s agittal reformatted images were obtained, reviewed, and stored. Evaluation of the parenchymal organs is limited without IV contrast. Evaluation of the bowel and mesentery is limited without oral contras t. All CT scans at this medical facility are performed using dose modulation techniques as appropriat e to a performed exam including the following: Automated exposure control was utilized; adjustment of the MA and/or KV according to patient size; and use of iterative reconstruction technique. CTDIvol = 16.07 mGy DLP = 958.76 mGy-cm COMPARISON: CT ABD/PEL on DOS: 07/20/23, CT ABD/PEL on DOS: 07/09/23, CT CT AB PEL WO CON-NO ORAL OR I V on DOS: 02/09/23 FINDINGS: Lung bases: Lung bases are clear. Liver: Hepatic steatosis. Biliary: No calcified gallstones or biliary ductal dilatation. Spleen: Unremarkable. Pancreas: Grossly unremarkable in its noncontrast enhanced appearance. Adrenal glands: Unremarkable. No mass. Kidneys: No hydronephrosis. No renal or ureteral calculi. Aorta/Vascular: No aneurysm or significant calcification. There is coil material along the course of the left gonadal vein. Retroperitoneum: No mass or lymphadenopathy. Bowel/mesentery: No small bowel obstruction. No free air or free fluid. Appendix is visualized and ap pears unremarkable. Scattered small colonic diverticula without adjacent inflammatory changes to sug gest diverticulitis. Pelvic organs: Grossly unremarkable. Bladder: Underdistended and not well evaluated. Abdominal wall: No mass or hernia. Bones: No acute fracture or suspicious intraosseous lesion. IMPRESSION: 1. No acute abnormality identified in the abdomen or pelvis. 2. Hepatic steatosis. 3. Scattered small colonic diverticula without adjacent inflammatory changes to suggest diverticuliti s. 4. Vascular coil material within the left gonadal vein.
[2025-05-20] MEDS: SODIUM CHLORIDE 0.9% 1,000 ML IV ONE (14:36)
[2025-05-20] MEDS: ONDANSETRON HCL 4 MG/2 ML VIAL IV ONE (14:36)
[2025-05-20] MEDS: PANTOPRAZOLE 40 MG/10 ML VIAL INJ IV ONE (14:36)
[2025-05-20 14:47] VITALS: TEMP 98.2
[2025-05-20] MEDS: MORPHINE SULFATE 4 MG/ML SYR/VIAL IV ONE (14:47)
[2025-05-20] MEDS ORDERED: DOCU-94 PO (15:12)
[2025-05-20] MEDS ORDERED: IBUP1TAB5 PO (15:12)
[2025-05-20] MEDS ORDERED: DICY10CA PO (15:12)
[2025-05-20 16:55] VITALS: BP 110/78
[2025-05-20 16:56] VITALS: PULSE 71; RESP 17; O2SAT 98
== END 2025-05-20 17:02 | disposition home or self-care (01) ==
LOC: ER 11:46
DX: R10.11 Right upper quadrant pain (principal); Z79.899 Other long term (current) drug therapy; Z98.890 Other specified postprocedural states
CPT/HCPCS: 36415; 74176; 80053; 83690; 85025; 96361; 96374; 96375; 99285; J2270; J2405; J2470; J7030

== ENCOUNTER 2025-07-15 08:53 | Inpatient (IN) | payer MEDICAID ==
[~2025-07-15] VITALS: Ht 167.6 cm; Wt 100.3 kg
[~2025-07-15 08:53] MED LIST changes: +DICY10CA PO; +DOCU-94 PO; +IBUP1TAB5 PO
--- NOTE | 2025-07-15 10:28 | ED.PDOC ---
History of Present Illness HPI Comments 35-year-old male with prior surgical history of varicocele coil procedure in February and a chief complaint of testicular pain. Patient reports on having nontraumatic testicular pain which started last night. Denies any other symptoms at this time. Denies chills, fever, N/V/D, SOB, CP. No other associated symptoms, modifiers, recent injuries or sick contacts present at this time. Chief Complaint: Testicle Pain Time Seen by MD: 10:30 Primary Care Provider: UNKNOWN Reviewed Notes: Nurses Notes, Medications, Allergies Allergies: Coded Allergies: NO KNOWN ALLERGIES (Unverified , 03/05/25) Home Meds Active Scripts Docusate Sodium (Colace) 100 Mg Cap, 1 CAP PO HS PRN, #30 CAP prn constipation Prov:ANGELA DE LA O MD 05/20/25 Ibuprofen Micronized (Ibuprofen) 600 Mg Tab, 600 MG PO Q6HP PRN, #30 TAB prn pain, take with food Prov:ANGELA DE LA O MD 05/20/25 Dicyclomine Hcl (BENTYL CAPSULE) 10 Mg Cp, 2 CAP PO Q6HP PRN, #30 CAP 11 Refills Prov:ANGELA DE LA O MD 05/20/25 Ibuprofen (Ibuprofen) 800 Mg Tab, 1 TAB PO TID PRN, #90 TAB 1 Refill Prov:JEIMY DONNELLY MD 11/25/24 Information Source: Patient Mode of Arrival: Ambulatory Severity: Moderate Timing: Hours Duration: Since onset, Hours Prehospital treatment: None Past Medical History PAST MEDICAL HISTORY: Denies Surgical History (Other): Varicocele coil procedure Family History Family History: Reviewed,noncontributory to illness, Unknown Social History Smoker: Non-Smoker Alcohol: Denies ETOH Use Drugs: Denies Drug Use Lives In: Home Constitutional: denies: chills, diaphoresis, fatigue, fever, malaise, sweats, weakness, others EENTM: denies: blurred vision, double vision, ear bleeding, ear discharge, ear drainage, ear pain, ear ringing, eye pain, eye redness, hearing loss, mouth pain, mouth swelling, nasal discharge, nose bleeding, nose congestion, nose pain, photophobia, tearing, throat pain, throat swelling, voice changes, others Respiratory: denies: cough, hemoptysis, orthopnea, SOB at rest, shortness of breath, SOB with excertion, stridor, wheezing, others Cardiovascular: denies: chest pain, dizzy spells, diaphoresis, Dyspnea on exertion, edema, irregular heart beat, left arm pain, lightheadedness, palpitations, PND, syncope, others Gastrointestinal: denies: abdomen distended, abdominal pain, blood streaked bowels, constipated, diarrhea, dysphagia, difficulty swallowing, hematemesis, melena, nausea, poor appetite, poor fluid intake, rectal bleeding, rectal pain, vomiting, others Genitourinary: reports: testicle pain; denies: burning, dysuria, flank pain, frequency, hematuria, incontinence, penile discharge, penile sore, pain, testicle swelling, urgency, others Neurological: denies: dizziness, fainting, headache, left sided numbness, left sided weakness, numbness, paresthesia, pre-existing deficit, right sided numbness, right sided weakness, seizure, speech problems, tingling, tremors, weakness, others Musculoskeletal: denies: back pain, gout, joint pain, joint swelling, muscle pain, muscle stiffness, neck pain, others Integumetry: denies: bruises, change in color, change in hair/nails, dryness, laceration, lesions, lumps, rash, wounds, others Allergic/Immunocompromised: denies: Difficulty Healing, Frequent Infections, Hives, Itching, others Hematologic/Lymphatic: denies: anemia, blood clots, easy bleeding, easy bruising, swollen glands, others Endocrine: denies: excessive hunger, excessive sweating, excessive thirst, excessive urination, flushing, intolerance to cold, intolerance to heat, unexplained weight gain, unexplained weight loss, others Psychiatric: denies: anxiety, bipolar disorder, depression, hopeless, panic disorder, schizophrenia, sleepless, suicidal, others All Other Systems: Reviewed and Negative Physical Exam General Appearance: Moderate Distress, Normal HEENT: Normal ENT Inspection, Pharynx Normal, TMs Normal Neck: Full Range of Motion, Non-Tender, Normal, Normal Inspection Respiratory: Chest Non-Tender, Lungs Clear, No Accessory Muscle Use, No Respiratory Distress, Normal Breath Sounds Cardiovascular: No Edema, No JVD, No Murmur, No Gallop, Normal Peripheral Pulses, Regular Rate/Rhythm Breast Exam: Deferred Gastrointestinal: No Organomegaly, Non Tender, No Pulsatile Mass, Normal Bowel Sounds, Soft Genitalia: Deferred Pelvic: Deferred Rectal: Deferred Extremities: No calf tenderness, Normal capillary refill, Normal inspection, Normal range of motion, Non-tender, No pedal edema Musculoskeletal : Apperance: Normal Neurologic: Alert, cloud subject matter expert II-XII nml as Tested, No Motor Deficits, Normal Affect, Normal Mood, No Sensory Deficits Cerebellar Function: Normal Reflexes: Normal Skin: Dry, Normal Color, Warm Peripheral Pulses: 3+ Radial (R), 3+ Radial (L) Lymphatic: No Adenopathy Was a procedure done? Was a procedure done?: No Differential Dx Considerations may include: Orchitis Electrolyte imbalance X-Ray, Labs, Meds, VS Vital Signs Date Time Temp Pulse Resp B/P (MAP) Pulse Ox O2 Delivery O2 Flow Rate FiO2 07/15/25 09:40 98.9 74 18 106/74 (85) 99 98.9 07/15/25 09:40 74 17 99 Room Air 07/15/25 08:55 97.5 67 18 128/88 100 97.5 Lab Test 07/15/25 10:53 07/15/25 10:12 Range/Units Urine Color Pending Urine Clarity Pending Urine pH Pending Urine Specific Tiger Pending Urine Protein Pending Urine Ketones Pending Urine Blood Pending Urine Nitrite Pending Urine Bilirubin Pending Urine Urobilinogen Pending Urine Leukocyte Esterase Pending Urine RBC Pending Urine Microscopic WBC Pending Urine Squamous Epithelial Cells Pending Urine Bacteria Pending Urine Glucose Pending White Blood Count 6.0 4.4-10.8 10^3/uL Red Blood Count 5.42 4.5-5.90 10^6/uL Hemoglobin 16.3 13.5-17.5 g/dL Hematocrit 48.5 41.0-53.0 % Mean Corpuscular Volume 89.5 80.0-100.0 fL Mean Corpuscular Hemoglobin 30.1 28.0-32.0 pg Mean Corpuscular Hemoglobin Concent 33.6 32.0-36.0 g/dL Red Cell Distribution Width 13.9 11.8-14.3 % Platelet Count 219 140-450 10^3/uL Mean Platelet Volume 8.7 6.9-10.8 fL Neutrophils (%) (Auto) 61.7 37.0-80.0 % Lymphocytes (%) (Auto) 28.7 10.0-50.0 % Monocytes (%) (Auto) 7.5 0.0-12.0 % Eosinophils (%) (Auto) 1.5 0.0-7.0 % Basophils (%) (Auto) 0.6 0.0-2.0 % Neutrophils # (Auto) 3.7 1.6-8.6 10 ^3/uL Lymphocytes # (Auto) 1.7 0.4-5.4 10 ^3/uL Monocytes # (Auto) 0.5 0-1.3 10 ^3/uL Eosinophils # (Auto) 0.1 0-0.8 10 ^3/uL Basophils # (Auto) 0 0-0.2 10 ^3/uL Nucleated Red Blood Cells 0.1 % Sodium Level Pending Potassium Level Pending Chloride Level Pending Carbon Dioxide Level Pending Anion Gap Pending Blood Urea Nitrogen Pending Creatinine Pending Glomerular Filtration Rate Calc Pending BUN/Creatinine Ratio Pending Serum Glucose Pending Calcium Level Pending Patient alert. Vitals stable. Complaining of testicular pain. Answering questions. WBC within normal limits. Hemoglobin within normal limits. Reviewed his notes from his last surgery. Has been seen in this hospital for similar symptom. Patient has been dealing with this pain for several months even though he had a procedure done here. Was given pain medication. Urology consultation. Explained to the patient. Continue monitoring. Time of 1ST Reevaluation: 11:00 Reevaluation 1ST: Unchanged Patient Education/Counseling: Diagnosis, Treatment, Prognosis Family Education/Counseling: No Family Present SEPSIS Sepsis Screen Date sepsis recognized/suspect: Jul 15, 2025 Time Sepsis recognized/suspect: 0856 Recent Procedure: No On Antibiotic Therapy: No Respiratory Rate >20: No Heart Rate >90: No Temp<36 C (96.8 F) or >38.3 C: No SBP <90 or MAP <65 mmHG: No New Acute Mental Status Change: No Is the patient on CPAP, BIPAP,: No Physician Orders Testicular Ultrasound (07/15/25 10:04) Basic Metabolic Panel (07/15/25 10:04) Urinalysis (07/15/25 10:06) Vital Signs Date Time Temp Pulse Resp B/P (MAP) Pulse Ox O2 Delivery O2 Flow Rate FiO2 07/15/25 09:40 98.9 74 18 106/74 (85) 99 98.9 07/15/25 09:40 74 17 99 Room Air 07/15/25 08:55 97.5 67 18 128/88 100 97.5 Laboratory Tests Test 07/15/25 10:12 White Blood Count 6.0 10^3/uL (4.4-10.8) Departure 1 Departure Time of Disposition: 11:08 Impression: Primary Impression: Varicocele Additional Impressions: Hydrocele of testis Left testicular pain Disposition: ADMITTED INPATIENT Admit to: Med Surg Condition: Guarded Critical Care Note Critical Care Time?: Yes (90 min-critical care time only) Stability Stability form required: No Heart Score Heart Score: Heart Score Response (Comments) Value History N/A 0 EKG N/A 0 Age N/A 0 Risk Factors N/A 0 Troponin N/A 0 Total 0 I personally scribed for JADE BAHENA MD ([email or web address]) on 07/15/25 at 10:28. Electronically submitted by Ronald Gomez ([email or web address]). JADE BAHENA MD Jul 15, 2025 10:28
--- NOTE | 2025-07-15 10:55 | DVH ---
ULTRASOUND OF SCROTUM AND CONTENTS. INDICATION: Orchitis COMPARISON: US TESTICULAR ULTRASOUND on DOS: 03/16/25, US TESTICULAR ULTRASOUND on DOS: 11/22/24, US RODRI TICULAR ULTRASOUND on DOS: 05/02/24, US TESTICULAR ULTRASOUND on DOS: 02/10/24, US TESTICULAR ULTRASOUN D on DOS: 05/27/23 TECHNIQUE: Multiple real-time grayscale sonographic and color and duplex Doppler images of the scrotu m and its contents were obtained. FINDINGS: The right testicle measures 5.0 x 2.5 x 3.4 cm. The left testicle measures 5.0 x 2.4 x 3.0 cm. Both testicles demonstrate homogeneous echotexture without evidence of focal lesions. The right epididymal head measures 1.2 cm. The left epididymal head measures 1.1 cm. Right epididymal head cyst measures 0.8 cm. Subsequent color and duplex Doppler interrogation of the testes demonstrated symmetric normal vascula r flow to both testicles. No focal areas of hyperemia were seen. IMPRESSION: 1. No evidence of torsion, epididymitis, and/or orchitis.
[2025-07-15 10:59] LABS: Hematocrit 48.5 % (41.0-53.0); Hemoglobin 16.3 g/dL (13.5-17.5); Mean Corpuscular Hemoglobin 30.1 pg (28.0-32.0); Mean Corpuscular Volume 89.5 fL (80.0-100.0); Nucleated Red Blood Cells % 0.1 %
[2025-07-15 11:09] LABS: Urine Protein, UAD Negative (Negative)
[2025-07-15 11:12] LABS: Chloride 107 mmol/L (98-107); Potassium 4.6 mmol/L (3.5-5.1); Sodium 144 mmol/L (136-145)
[2025-07-15 11:13] LABS: Anion Gap 10 (5-15); Calcium 9.9 mg/dL (8.7-10.4); Carbon Dioxide 27 mmol/L (20-31)
[2025-07-15 11:18] LABS: BUN/Creatinine Ratio 13.1 (10.0-20.0); Blood Urea Nitrogen 13 mg/dL (9-23); Glucose 89 mg/dL (74-106)
[2025-07-15] MEDS ORDERED: ONDANSETRON HCL 4 MG/2 ML VIAL IV PRN (16:15)
--- NOTE | 2025-07-15 16:35 | DVHHPRES ---
History of Present Illness Resident Creating Document: PRASHANTH AUGUSTE RESIDENT History of Present Illness History of Present Illness (HPI): Vahid Friedman is a 35-year-old male with past medical history of varicocele who presented to the hospital with complains of pain in the left testicle from last time. He rates the pain 10 on 10 in intensity, dull in quality, continuous, with no aggravating or alleviating factors. He will also complains of associated nausea. Patient states that he underwent embolization of varicocele in November at [facility] and another embolization at [facility] in February. Denies any fever, abdominal pain, aggravated or alleviating of pain on test is elevation. Past Medical History (PMH): Recurrent varicocele Past Surgical History (PSH): Embolization of varicocele Family history (FH): History of type 2 diabetes mellitus in father EtOH: Denies alcohol use Smoking /Vaping: Denies smoking Recreational Drugs: Denies recreational drug use Residence: Lives with Home Medications: No home medications Allergies: Known allergies PCP: Dr. Pleitez Specialist relevant to admission: Urologist Review of Systems Review of Systems General: patient denies fever, fatigue, weaknes, sweating, any recent changes in appetite and weight HEENT: No headaches, visiual changes, hearing loss, tinnitus, nasal congestion and discharge, and sore throat. Cardiovascular: Denies chest pain, palpitations, dyspnea on exertion, orthopnea, or claudication. Respiratory: No cough, and wheezing. Gastrointestinal: Denies nausea, vomiting, dysphagia, odynophagia, heartburn, abdominal pain, flatulence, bloating, diarrhea, constipation, change in stool, or blood in stool. Genitourinary: No dysuria, hematuria, discharge, frequency, urgency, nocturia, incontinence, and urinary retention. Complains of pain in the left testis Endocrine: No heat or cold intolerance, polydipsia, polyuria, and polyphagia. Neurological: No dizziness, extremity weakness and numbness, tremors, gait disturbance, seizures, and memory impairment. Psychiatric: Denies depression, anxiety,or insomnia. Musculoskeletal: Denies neck pain, stiffness and swelling, back pain, muscle we akness, joint pain, stiffness, swelling, or limited range of motion. Skin: No rashes, itching, skin lesion, changes in hair, nail, skin texture and breast. Hematologic/Lymphatic: Denies easy bruising, bleeding tendencies, or lymph node enlargement. Allergies: Coded Allergies: NO KNOWN ALLERGIES (Unverified , 03/05/25) Medications Current Medications Medications Dose Ordered Sig/Aruna Route Start Time Stop Time Status Last Admin Dose Admin Ondansetron HCl 4 mg Q4HP PRN IV 07/15/25 16:15 UNV Ketorolac Tromethamine 15 mg Q6HPRN PRN IV 07/15/25 16:30 07/20/25 16:29 UNV Pantoprazole Sodium 40 mg DAILY IV 07/16/25 10:00 UNV Exam Vital Signs Vital Signs Date Time Temp Pulse Resp B/P (MAP) Pulse Ox O2 Delivery O2 Flow Rate FiO2 07/15/25 14:34 100 16 128/77 (94) 97 07/15/25 09:40 98.9 98.9 07/15/25 09:40 Room Air Exam General Appearance: Alert, Oriented X3, Cooperative, No acute distress HEENT: Atraumatic, PERRLA, EOMI, Mucous membrane moist/pink Respiratory: Clear to auscultation, Normal air movement Cardiovascular: Regular rate, Normal S1, Normal S2, No murmurs, no chest wall tenderness Abdominal: Normal bowel sounds, Soft, No tenderness, No hepatospenomegaly, No masses. Bag of worm appearance and tenderness on palpation of left testis Extremities: No clubbing, No cyanosis, No edema, Normal pulses, No tenderness/swelling Skin: No rashes, No breakdown, No significant lesion Neuro: Normal gait, Normal speech, Strength at 5/5 X4 ext, Normal tone, Sensation intact, Cranial nerves 3-12 NL, Reflexes 2+ Psych/Mental Status: Mental status NL, Mood NL Labs/Xrays Labs Test 07/15/25 10:53 07/15/25 10:12 Range/Units Urine Color Yellow Yellow Urine Clarity Clear Clear Urine pH 5.5 5.0-9.0 Urine Specific Gustavus 1.029 1.001-1.035 Urine Protein Negative Negative Urine Ketones Negative Negative Urine Blood Negative Negative /uL Urine Nitrite Negative Negative Urine Bilirubin Negative Negative Urine Urobilinogen Normal Negative mg/dL Urine Leukocyte Esterase Negative Negative /uL Urine RBC None seen 0 - 3 /hpf Urine Microscopic WBC 1 0-3 /HPF Urine Squamous Epithelial Cells Few <5 /hpf Urine Bacteria None seen None Seen /hpf Urine Mucus Few None Seen Urine Glucose Normal Normal mg/dL White Blood Count 6.0 4.4-10.8 10^3/uL Red Blood Count 5.42 4.5-5.90 10^6/uL Hemoglobin 16.3 13.5-17.5 g/dL Hematocrit 48.5 41.0-53.0 % Mean Corpuscular Volume 89.5 80.0-100.0 fL Mean Corpuscular Hemoglobin 30.1 28.0-32.0 pg Mean Corpuscular Hemoglobin Concent 33.6 32.0-36.0 g/dL Red Cell Distribution Width 13.9 11.8-14.3 % Platelet Count 219 140-450 10^3/uL Mean Platelet Volume 8.7 6.9-10.8 fL Neutrophils (%) (Auto) 61.7 37.0-80.0 % Lymphocytes (%) (Auto) 28.7 10.0-50.0 % Monocytes (%) (Auto) 7.5 0.0-12.0 % Eosinophils (%) (Auto) 1.5 0.0-7.0 % Basophils (%) (Auto) 0.6 0.0-2.0 % Neutrophils # (Auto) 3.7 1.6-8.6 10 ^3/uL Lymphocytes # (Auto) 1.7 0.4-5.4 10 ^3/uL Monocytes # (Auto) 0.5 0-1.3 10 ^3/uL Eosinophils # (Auto) 0.1 0-0.8 10 ^3/uL Basophils # (Auto) 0 0-0.2 10 ^3/uL Nucleated Red Blood Cells 0.1 % Sodium Level 144 136-145 mmol/L Potassium Level 4.6 3.5-5.1 mmol/L Chloride Level 107 98-107 mmol/L Carbon Dioxide Level 27 20-31 mmol/L Anion Gap 10 5-15 Blood Urea Nitrogen 13 9-23 mg/dL Creatinine 0.99 0.700-1.30 mg/dL Glomerular Filtration Rate Calc 102 >90 mL/min BUN/Creatinine Ratio 13.1 10.0-20.0 Serum Glucose 89 74-106 mg/dL Calcium Level 9.9 8.7-10.4 mg/dL SEPSIS Sepsis Screen Date sepsis recognized/suspect: Jul 15, 2025 Time Sepsis recognized/suspect: 0856 Recent Procedure: No On Antibiotic Therapy: No Respiratory Rate >20: No Heart Rate >90: No Temp<36 C (96.8 F) or >38.3 C: No SBP <90 or MAP <65 mmHG: No New Acute Mental Status Change: No Is the patient on CPAP, BIPAP,: No Physician Orders Testicular Ultrasound (07/15/25 10:04) Admit (07/15/25 16:14) Allergies (07/15/25 16:14) Code Status (07/15/25 16:14) Ondansetron Hcl (Zofran) (07/15/25 16:15) Complete Blood Count (07/16/25 04:00) Comprehensive Metabolic Panel (07/16/25 04:00) Npo (Nothing By Mouth) Diet (07/15/25 Dinner) Condition: Fair (07/15/25 16:14) Lipase (07/15/25 16:17) Lactic Acid W/ Reflex Order (07/15/25 16:17) Ketorolac Injection (Toradol Injection) (07/15/25 16:30) Pantoprazole (Protonix) (07/15/25 16:30) Pantoprazole (Protonix) (07/16/25 10:00) * Urology Consult (07/15/25 16:17) Vital Signs Date Time Temp Pulse Resp B/P (MAP) Pulse Ox O2 Delivery O2 Flow Rate FiO2 07/15/25 14:34 100 16 128/77 (94) 97 07/15/25 12:11 79 18 121/85 (97) 98 07/15/25 09:40 98.9 74 18 106/74 (85) 99 98.9 07/15/25 09:40 74 17 99 Room Air 07/15/25 08:55 97.5 67 18 128/88 100 97.5 Laboratory Tests Test 07/15/25 10:12 White Blood Count 6.0 10^3/uL (4.4-10.8) Assessment/Plan Assessment/Plan Assessment and plan Left varicocele IV fluids Pain medications- IV Toradol IV Protonix NPO after midnight Urology consult PT PTT Chest x-ray Supportive care, including scrotal elevation avoid tight pants/belts Ruled out torsion testis Negative ultrasound testis DIET: NPO GI PROPHYLAXIS:: Protonix CODE STATUS: Goal of care discussed for more than 17 minutes, full code DISPOSITION: Med/surge RECONCILED HOME MEDS: None PCP: Dr. Pleitez Patient's status and plan discussed with the patient. Case discussed with Dr. Slater Plan discussed with: Patient My Orders Orders - PRASHANTH AUGUSTE Procedure Category Date Status Time Admit ADMIT 07/15/25 Transmitted 16:14 Allergies EMILY 07/15/25 In Process 16:14 Code Status CODE 07/15/25 Transmitted 16:14 Ondansetron Hcl PHA 07/15/25 Logged (Zofran) 16:15 Complete Blood Count LAB 07/16/25 Verified 04:00 Comprehensive LAB 07/16/25 Verified Metabolic Panel 04:00 Npo (Nothing By DIET 07/15/25 Transmitted Mouth) Diet Dinner Condition: Fair EMILY 07/15/25 In Process 16:14 Lipase LAB 07/15/25 Logged 16:17 Lactic Acid W/ Reflex LAB 07/15/25 Logged Order 16:17 Ketorolac Injection PHA 07/15/25 Logged (Toradol Injection) 16:30 Pantoprazole PHA 07/15/25 Logged (Protonix) 16:30 Pantoprazole PHA 07/16/25 Logged (Protonix) 10:00 * Urology Consult CONS 07/15/25 Transmitted 16:17 Date of Service: Jul 15, 2025 Billing Provider: ELIZABET SLATER MD Common Visit Codes: [id number] INP/OBS CARE (HIGH) Secondary Visit Codes: [id number] CARE PLAN 30 MINUTES PRASHANTH AUGUSTE Jul 15, 2025 16:35 ELIZABET SLATER MD Jul 21, 2025 20:29
[2025-07-15] MEDS: PANTOPRAZOLE 40 MG/10 ML VIAL INJ IV ONE (17:50)
[2025-07-15] MEDS: SODIUM CHLORIDE 0.9% 1,000 ML IV SCH (17:50)
[2025-07-15 18:20] LABS: INR 0.97 (0.9-1.15); Partial Thromboplastin Time 27.2 SEC (24.5-34.5); Prothrombin Time 10.3 sec (9.3-11.8)
[2025-07-15 20:02] VITALS: PULSE 72; RESP 18; O2SAT 99
[2025-07-15 20:18] VITALS: PULSE 69; RESP 18
[2025-07-15 21:08] VITALS: BP 108/74; PULSE 69; RESP 18; TEMP 98.4; O2SAT 100
[2025-07-15] MEDS ORDERED: AMOX500T86 PO (21:21)
[2025-07-15 21:26] LABS: Amphetamine Screen, Urine Neg (NEGATIVE); Barbiturate Scree,Urine Neg (NEGATIVE); Benzodiazephine Screen, Urine Neg (NEGATIVE); Cannabinoid Screen, Urine Neg (NEGATIVE); Cocaine Screen, Urine Neg (NEGATIVE); Opiate Scree,Urine Neg (NEGATIVE); Phencyclidine Screen, Urine Neg (NEGATIVE)
[2025-07-15 21:30] VITALS: BP 108/74; PULSE 69; RESP 18; TEMP 98.4; O2SAT 100
[2025-07-16] VITALS (8 sets, daily range): BP systolic 102–116; BP diastolic 59–82; PULSE 56–68; RESP 17–18; TEMP 98–98.8; O2SAT 93–99
[2025-07-16] MEDS: KETOROLAC TROMETH 30 MG/ML 1ML VIAL IV PRN (04:57)
[2025-07-16 06:33] LABS: Hematocrit 42.6 % (41.0-53.0); Hemoglobin 14.5 g/dL (13.5-17.5); Mean Corpuscular Hemoglobin 30.0 pg (28.0-32.0); Mean Corpuscular Volume 88.1 fL (80.0-100.0); Nucleated Red Blood Cells % 0.0 %
[2025-07-16 06:45] LABS: Alanine Aminotransferase 35 U/L (7-40); Albumin 4.0 g/dL (3.2-4.8); Alkaline Phosphatase 66 U/L (46-116); Anion Gap 8 (5-15); BUN/Creatinine Ratio 11.2 (10.0-20.0); Blood Urea Nitrogen 11 mg/dL (9-23); Calcium 9.1 mg/dL (8.7-10.4); Carbon Dioxide 27 mmol/L (20-31); Glucose 97 mg/dL (74-106); Potassium 4.4 mmol/L (3.5-5.1); Sodium 143 mmol/L (136-145); Total Protein 6.6 g/dL (5.7-8.2)
[2025-07-16 06:46] LABS: Bilirubin, Total 0.5 mg/dL (0.2-1.0); Chloride 108 mmol/L (98-107)
[2025-07-16] MEDS: PANTOPRAZOLE 40 MG/10 ML VIAL INJ IV SCH (08:59)
--- NOTE | 2025-07-16 14:11 | DVHPNRES ---
Progress Note Date Seen: Jul 16, 2025 Resident Creating Document: PRASHANTH AUGUSTE Medical Necessity Reason Pt with a Central, PICC or Fol: No Subjective Review of Systems Patient seen at bedside. Still complains of pain but patient relates that the pain has decreased than on admission. Urology consult pending. Vahid Friedman is a 35-year-old male with past medical history of varicocele who presented to the hospital with complains of pain in the left testicle from last time. He rates the pain 10 on 10 in intensity, dull in quality, continuous, with no aggravating or alleviating factors. He will also complains of associated nausea. Patient states that he underwent embolization of varicocele in November at [facility] and another embolization at [facility] in February. Denies any fever, abdominal pain, aggravated or alleviating of pain on test is elevation. Past Medical History (PMH): Recurrent varicocele Past Surgical History (PSH): Embolization of varicocele Family history (FH): History of type 2 diabetes mellitus in father EtOH: Denies alcohol use Smoking /Vaping: Denies smoking Recreational Drugs: Denies recreational drug use Residence: Lives with Home Medications: No home medications Allergies: Known allergies PCP: Dr. Pleitez Specialist relevant to admission: Urologist General: patient denies fever, fatigue, weaknes, sweating, any recent changes in appetite and weight HEENT: No headaches, visiual changes, hearing loss, tinnitus, nasal congestion and discharge, and sore throat. Cardiovascular: Denies chest pain, palpitations, dyspnea on exertion, orthopnea, or claudication. Respiratory: No cough, and wheezing. Gastrointestinal: Denies nausea, vomiting, dysphagia, odynophagia, heartburn, abdominal pain, flatulence, bloating, diarrhea, constipation, change in stool, or blood in stool. Genitourinary: No dysuria, hematuria, discharge, frequency, urgency, nocturia, incontinence, and urinary retention. Complains of pain in the left testis Endocrine: No heat or cold intolerance, polydipsia, polyuria, and polyphagia. Neurological: No dizziness, extremity weakness and numbness, tremors, gait disturbance, seizures, and memory impairment. Psychiatric: Denies depression, anxiety,or insomnia. Musculoskeletal: Denies neck pain, stiffness and swelling, back pain, muscle weakness, joint pain, stiffness, swelling, or limited range of motion. Skin: No rashes, itching, skin lesion, changes in hair, nail, skin texture and breast. Hematologic/Lymphatic: Denies easy bruising, bleeding tendencies, or lymph node enlargement. Objective vital signs Vital Sign Date Time Temp Pulse Resp B/P (MAP) Pulse Ox O2 Delivery O2 Flow Rate FiO2 07/16/25 09:00 98.3 65 18 106/69 (81) 96 98.3 07/16/25 07:30 Room Air* 0 21 Total Intake and Output 07/15/25 07/15/25 07/16/25 15:00 23:00 07:00 Intake Total 800 ml Balance 800 ml medications Current Medications Medications Dose Ordered Sig/Aruna Route Start Time Stop Time Status Last Admin Dose Admin Ondansetron HCl 4 mg Q4HP PRN IV 07/15/25 16:15 Ketorolac Tromethamine 15 mg Q6HPRN PRN IV 07/15/25 16:30 07/20/25 16:29 07/16/25 04:57 15 MG Pantoprazole Sodium 40 mg DAILY IV 07/16/25 10:00 07/16/25 08:59 40 MG Sodium Chloride 1,000 ml @ 75 mls/hr [id number] IV 07/15/25 16:45 07/16/25 06:05 75 MLS/HR Examination General Appearance: Alert, Oriented X3, Cooperative, No acute distress HEENT: Atraumatic, PERRLA, EOMI, Mucous membrane moist/pink Respiratory: Clear to auscultation, Normal air movement Cardiovascular: Regular rate, Normal S1, Normal S2, No murmurs, no chest wall tenderness Abdominal: Normal bowel sounds, Soft, No tenderness, No hepatospenomegaly, No masses. Bag of worm appearance and tenderness on palpation of left testis Extremities: No clubbing, No cyanosis, No edema, Normal pulses, No tenderness/swelling Skin: No rashes, No breakdown, No significant lesion Neuro: Normal gait, Normal speech, Strength at 5/5 X4 ext, Normal tone, Sensation intact, Cranial nerves 3-12 NL, Reflexes 2+ Psych/Mental Status: Mental status NL, Mood NL laboratory and microbiology Laboratory Tests 07/16/25 04:49 Test 07/16/25 04:49 Range/Units Serum Glucose 97 74-106 mg/dL Microbiology Date/Time Source Procedure Growth Status 07/15/25 10:53 Voided Urine Urine Culture - Preliminary Resulted Problem List/Assessment/Plan Problem List/Assessment/Plan Assessment and plan Left varicocele IV fluids Pain medications- IV Toradol IV Protonix NPO after midnight Urology consult PT PTT Chest x-ray Supportive care, including scrotal elevation avoid tight pants/belts Ruled out torsion testis Negative ultrasound testis DIET: NPO GI PROPHYLAXIS:: Protonix CODE STATUS: Goal of care discussed for more than 17 minutes, full code DISPOSITION: Med/surge RECONCILED HOME MEDS: None PCP: Dr. Pleitez Patient's status and plan discussed with the patient. Case discussed with Dr. Slater Plan discussed with: Patient My Orders My Orders Orders - PRASHANTH AUGUSTE RESIDENT Procedure Category Date Status Time Admit ADMIT 07/15/25 Transmitted 16:14 Allergies EMILY 07/15/25 In Process 16:14 Code Status CODE 07/15/25 Transmitted 16:14 Ondansetron Hcl PHA 07/15/25 In Process (Zofran) 16:15 Npo (Nothing By DIET 07/15/25 Transmitted Mouth) Diet Dinner Condition: Fair EMILY 07/15/25 In Process 16:14 Ketorolac Injection PHA 07/15/25 In Process (Toradol Injection) 16:30 Pantoprazole PHA 07/16/25 In Process (Protonix) 10:00 * Urology Consult CONS 07/15/25 Transmitted 16:17 Sodium Chloride 0.9% PHA 07/15/25 In Process 16:45 Date of Service: Jul 16, 2025 Billing Provider: ELIZABET SLATER MD Common Visit Codes: [id number] INP/OBS CARE(HIGH) PRASHANTH AUGUSTE RESIDENT Jul 16, 2025 14:11 ELIZABET SLATER MD Jul 21, 2025 20:29
[2025-07-17] VITALS (9 sets, daily range): BP systolic 106–129; BP diastolic 53–90; PULSE 58–84; RESP 13–18; TEMP 97–99.1; O2SAT 92–100
--- NOTE | 2025-07-17 08:25 | DVHINCON2 ---
Date of service: Jul 17, 2025 Referring Physician Hospitalist Reason for Consultation Chronic left orchalgia History of Present Illness Patient underwent varicocelectomy in December 2024 and subsequent embolization in February 2025. He is admitted for intractable left orchalgia and wants to remove his left testicle. PATIENT: ESME MEDRANO ACCT: [id number] UNIT: [id number] : 1990 LOC: ER ROOM / BED: / AGE / SEX: 35 / M ADM STATUS: REG ER SERVICE 1004 ORDERING PHYSICIAN: JADE BAHENA MD PROCEDURE(s): TESUS - TESTICULAR ULTRASOUND REASON: Orchitis ORDER NUMBER(s): [id number], ACCESSION NUMBER(s): [id number] ULTRASOUND OF SCROTUM AND CONTENTS. INDICATION: Orchitis COMPARISON: US TESTICULAR ULTRASOUND on DOS: 03/16/25, US TESTICULAR ULTRASOUND on DOS: 11/22/24, US TESTICULAR ULTRASOUND on DOS: 05/02/24, US TESTICULAR ULTRASOUND on DOS: 02/10/24, US TESTICULAR ULTRASOUND on DOS: 05/27/23 TECHNIQUE: Multiple real-time grayscale sonographic and color and duplex Doppler images of the scrotum and its contents were obtained. FINDINGS: The right testicle measures 5.0 x 2.5 x 3.4 cm. The left testicle measures 5.0 x 2.4 x 3.0 cm. Both testicles demonstrate homogeneous echotexture without evidence of focal lesions. The right epididymal head measures 1.2 cm. The left epididymal head measures 1.1 cm. Right epididymal head cyst measures 0.8 cm. Subsequent color and duplex Doppler interrogation of the testes demonstrated symmetric normal vascular flow to both testicles. No focal areas of hyperemia were seen. IMPRESSION: 1. No evidence of torsion, epididymitis, and/or orchitis. ATED BY: SLAVA TOLBERT MD DICTATED DATE/TIME: 07/15/25 105 SIGNED BY: SLAVA TOLBERT MD SIGNED DATE/TIME: 07/15/25 105 CC: Past Surgical History Left varicocelectomy Left spermatic vein embolization Family History: Diabetes mellitus G8 FATHER, Allergies: Coded Allergies: NO KNOWN ALLERGIES (Unverified , 03/05/25) Home Meds Reported Medications Amoxicillin & Pot Clavulanate (Augmentin) 500 Mg Tab, 500 MG PO Q12HR, TAB 07/15/25 Current Medications Current Medications Medications (Trade) Dose Ordered Sig/Aruna Route PRN Reason Start Time Stop Time Status Last Admin Pantoprazole Sodium (Protonix) 40 mg DAILY IV 07/16/25 10:00 07/16/25 08:59 Review of Systems intractable left testicular pain Vital Signs Vital Signs Date Time Temp Pulse Resp B/P (MAP) Pulse Ox O2 Delivery O2 Flow Rate FiO2 07/17/25 05:08 97.7 58 18 106/53 (70) 95 97.7 07/16/25 20:00 Room Air* 0 21 Labs/Diagnostic Data Labs Test 07/16/25 04:49 07/15/25 17:50 07/15/25 17:27 07/15/25 16:54 Range/Units White Blood Count 6.8 4.4-10.8 10^3/uL Red Blood Count 4.83 4.5-5.90 10^6/uL Hemoglobin 14.5 13.5-17.5 g/dL Hematocrit 42.6 # 41.0-53.0 % Mean Corpuscular Volume 88.1 80.0-100.0 fL Mean Corpuscular Hemoglobin 30.0 28.0-32.0 pg Mean Corpuscular Hemoglobin Concent 34.0 32.0-36.0 g/dL Red Cell Distribution Width 13.7 11.8-14.3 % Platelet Count 189 140-450 10^3/uL Mean Platelet Volume 8.8 6.9-10.8 fL Neutrophils (%) (Auto) 61.0 37.0-80.0 % Lymphocytes (%) (Auto) 27.3 10.0-50.0 % Monocytes (%) (Auto) 9.2 0.0-12.0 % Eosinophils (%) (Auto) 2.1 0.0-7.0 % Basophils (%) (Auto) 0.4 0.0-2.0 % Neutrophils # (Auto) 4.2 1.6-8.6 10 ^3/uL Lymphocytes # (Auto) 1.9 0.4-5.4 10 ^3/uL Monocytes # (Auto) 0.6 0-1.3 10 ^3/uL Eosinophils # (Auto) 0.1 0-0.8 10 ^3/uL Basophils # (Auto) 0 0-0.2 10 ^3/uL Nucleated Red Blood Cells 0.0 % Sodium Level 143 136-145 mmol/L Potassium Level 4.4 3.5-5.1 mmol/L Chloride Level 108 H 98-107 mmol/L Carbon Dioxide Level 27 20-31 mmol/L Anion Gap 8 5-15 Blood Urea Nitrogen 11 9-23 mg/dL Creatinine 0.98 0.700-1.30 mg/dL Glomerular Filtration Rate Calc 103 >90 mL/min BUN/Creatinine Ratio 11.2 10.0-20.0 Serum Glucose 97 74-106 mg/dL Calcium Level 9.1 8.7-10.4 mg/dL Total Bilirubin 0.5 0.2-1.0 mg/dL Aspartate Amino Transferase (AST) 19 13-40 U/L Alanine Aminotransferase (ALT) 35 7-40 U/L Alkaline Phosphatase 66 46-116 U/L Total Protein 6.6 5.7-8.2 g/dL Albumin 4.0 3.2-4.8 g/dL Prothrombin Time 10.3 9.3-11.8 sec Prothrombin Time INR 0.97 0.9-1.15 Activated Partial Thromboplast Time 27.2 24.5-34.5 SEC Lactic Acid Level 1.9 0.4-2.0 mmol/L Lipase 44 12-53 U/L Thyroid Stimulating Hormone (TSH) 1.30 0.55-4.78 uIU/mL Follicle Stimulating Hormone 4.23 1.4-18.1 IU/L Test 07/15/25 10:53 Range/Units Urine Color Yellow Yellow Urine Clarity Clear Clear Urine pH 5.5 5.0-9.0 Urine Specific [place] 1.029 1.001-1.035 Urine Protein Negative Negative Urine Ketones Negative Negative Urine Blood Negative Negative /uL Urine Nitrite Negative Negative Urine Bilirubin Negative Negative Urine Urobilinogen Normal Negative mg/dL Urine Leukocyte Esterase Negative Negative /uL Urine RBC None seen 0 - 3 /hpf Urine Microscopic WBC 1 0-3 /HPF Urine Squamous Epithelial Cells Few <5 /hpf Urine Bacteria None seen None Seen /hpf Urine Mucus Few None Seen Urine Glucose Normal Normal mg/dL Urine Opiates Screen Neg NEGATIVE Urine Fentanyl Screen Neg NEGATIVE Urine Barbiturates Screen Neg NEGATIVE Urine Phencyclidine Screen Neg NEGATIVE Urine Amphetamines Screen Neg NEGATIVE Urine Benzodiazepines Screen Neg NEGATIVE Urine Cocaine Screen Neg NEGATIVE Urine Cannabinoids Screen Neg NEGATIVE Microbiology Date/Time Source Procedure Growth Status 07/15/25 17:42 Blood Blood Culture - Preliminary NO GROWTH AFTER 24 HOURS OF INCUBATION. Resulted 07/15/25 10:53 Voided Urine Urine Culture - Preliminary Resulted Assessment Left testicular pain, chronic Plan/Recommendation Left simple orchiectomy today NPO Plan discussed with: Patient, Other JOY ORTIZ MD Jul 17, 2025 08:25
[2025-07-17] MEDS: LIDOCAINE 1%-Mpf/Epinephrine 1:200,000 30ml VIAL ONE (11:25)
[2025-07-17] MEDS ORDERED: CIPROFLOXACIN 400MG/200ML 200 ML IV ONE (12:49)
[2025-07-17] MEDS ORDERED: MIDAZOLAM HCL 2MG/2ML 2ml VIAL (1mg/ml) ONE (12:58)
[2025-07-17] MEDS ORDERED: fentaNYL CITRATE 100 MCG/2 ML VL ONE (12:58)
[2025-07-17] MEDS ORDERED: PROPOFOL 10 MG/ML 20 ML IV ONE (12:59)
[2025-07-17] MEDS ORDERED: ONDANSETRON HCL 4 MG/2 ML VIAL ONE (12:59)
[2025-07-17] MEDS ORDERED: METOCLOPRAMIDE HCL 5MG/ml INJ 2ml VIAL ONE (12:59)
[2025-07-17] MEDS ORDERED: LIDOCAINE 2% (LOCAL ANESTH.) PF 5ml SDV ONE (12:59)
[2025-07-17] MEDS ORDERED: LIDOCAINE W/ EPINEPHRINE 2% INJ 20ML VIAL ONE (13:00)
[2025-07-17] MEDS ORDERED: BUPIVACAINE 0.25% INJ 50ML VIAL ONE (13:46)
[2025-07-17] MEDS ORDERED: HYDROmorphone HCL 2 MG/ML VL/or syr ONE (14:05)
[2025-07-17] MEDS ORDERED: METOCLOPRAMIDE HCL 5MG/ml INJ 2ml VIAL IV PRN (14:45)
[2025-07-17] MEDS ORDERED: HYDROmorphone HCL 2 MG/ML VL/or syr IV PRN (14:45)
[2025-07-17] MEDS ORDERED: ONDANSETRON HCL 4 MG/2 ML VIAL IV PRN (14:45)
[2025-07-17] MEDS: KETOROLAC TROMETH 30 MG/ML 1ML VIAL IV ONE (15:17)
[2025-07-17] MEDS ORDERED: KETOROLAC TROMETH 30 MG/ML 1ML VIAL ONE (15:19)
[2025-07-17] MEDS: ACETAMINOPHEN 325 MG TAB PO ONE (22:10)
[2025-07-18] VITALS (7 sets, daily range): BP systolic 93–131; BP diastolic 60–89; PULSE 67–93; RESP 14–17; TEMP 37.1; O2SAT 93–98
[2025-07-18 06:07] LABS: Chlamydia Trachomatis, NAA Negative (Negative); Neisseria gonorrhoeae, NAA Negative (Negative)
[2025-07-18 06:11] LABS: Hematocrit 42.8 % (41.0-53.0); Hemoglobin 14.5 g/dL (13.5-17.5); Mean Corpuscular Hemoglobin 29.9 pg (28.0-32.0); Mean Corpuscular Volume 87.9 fL (80.0-100.0); Nucleated Red Blood Cells % 0.1 %
[2025-07-18 06:28] LABS: Chloride 107 mmol/L (98-107); Potassium 4.3 mmol/L (3.5-5.1); Sodium 141 mmol/L (136-145)
[2025-07-18 06:29] LABS: Anion Gap 12 (5-15); Calcium 8.9 mg/dL (8.7-10.4); Carbon Dioxide 22 mmol/L (20-31)
[2025-07-18 06:34] LABS: BUN/Creatinine Ratio 14.3 (10.0-20.0); Blood Urea Nitrogen 13 mg/dL (9-23)
[2025-07-18 06:38] LABS: Glucose 140 mg/dL (74-106)
[2025-07-18 08:35] LABS: Hematocrit 43.3 % (41.0-53.0); Hemoglobin 14.5 g/dL (13.5-17.5); Mean Corpuscular Hemoglobin 29.3 pg (28.0-32.0); Mean Corpuscular Volume 87.7 fL (80.0-100.0); Nucleated Red Blood Cells % 0.0 %
[2025-07-18 08:50] LABS: Albumin 4.3 g/dL (3.2-4.8); Alkaline Phosphatase 76 U/L (46-116); Anion Gap 11 (5-15); BUN/Creatinine Ratio 16.9 (10.0-20.0); Blood Urea Nitrogen 15 mg/dL (9-23); Calcium 8.9 mg/dL (8.7-10.4); Carbon Dioxide 22 mmol/L (20-31); Potassium 4.1 mmol/L (3.5-5.1); Sodium 141 mmol/L (136-145); Total Protein 6.9 g/dL (5.7-8.2)
[2025-07-18 08:51] LABS: Alanine Aminotransferase 68 U/L (7-40); Bilirubin, Total 0.4 mg/dL (0.2-1.0); Chloride 108 mmol/L (98-107); Glucose 116 mg/dL (74-106)
--- NOTE | 2025-07-18 11:18 | DVHPNRES ---
Progress Note Date Seen: Jul 17, 2025 Resident Creating Document: PRASHANTH AUGUSTE RESIDENT Medical Necessity Reason Pt with a Central, PICC or Fol: No Objective vital signs Vital Sign Date Time Temp Pulse Resp B/P (MAP) Pulse Ox O2 Delivery O2 Flow Rate FiO2 07/17/25 15:12 77 11 104/73 (83) 94 07/17/25 14:40 Room Air 0 98 07/17/25 14:27 97.3 97.3 Total Intake and Output 07/16/25 07/16/25 07/17/25 15:00 23:00 07:00 Intake Total 1000 ml 0 ml Output Total 500 ml Balance 500 ml 0 ml medications Current Medications Medications Dose Ordered Sig/Aruna Route Start Time Stop Time Status Last Admin Dose Admin Ondansetron HCl 4 mg Q4HP PRN IV 07/15/25 16:15 Ketorolac Tromethamine 15 mg Q6HPRN PRN IV 07/15/25 16:30 07/20/25 16:29 07/16/25 22:15 15 MG Pantoprazole Sodium 40 mg DAILY IV 07/16/25 10:00 07/17/25 09:25 40 MG Sodium Chloride 1,000 ml @ 75 mls/hr [id number] IV 07/15/25 16:45 07/17/25 15:59 75 MLS/HR laboratory and microbiology Laboratory Tests 07/16/25 04:49 Test 07/16/25 04:49 Range/Units Serum Glucose 97 74-106 mg/dL Microbiology Date/Time Source Procedure Growth Status 07/15/25 17:42 Blood Blood Culture - Preliminary NO GROWTH AFTER 24 HOURS OF INCUBATION. Resulted 07/15/25 10:53 Voided Urine Urine Culture - Preliminary Resulted Problem List/Assessment/Plan Problem List/Assessment/Plan Assessment and plan Left varicocele IV fluids Pain medications- IV Toradol IV Protonix NPO after midnight Urology consult PT PTT Chest x-ray Supportive care, including scrotal elevation avoid tight pants/belts Ruled out torsion testis Negative ultrasound testis DIET: NPO GI PROPHYLAXIS:: Protonix CODE STATUS: Goal of care discussed for more than 17 minutes, full code DISPOSITION: Med/surge RECONCILED HOME MEDS: None PCP: Dr. Pleitez Patient's status and plan discussed with the patient. Case discussed with Dr. Slater Dietary Evaluation Review Comments: Wt management upon D/C Expected Outcomes/Goals: gradual wt loss PRASHANTH AUGUSTE RESIDENT Jul 17, 2025 16:17
--- NOTE | 2025-07-18 11:19 | DVHPNRES ---
Progress Note Date Seen: Jul 17, 2025 Resident Creating Document: PRASHANTH AUGUSTE RESIDENT Medical Necessity Reason Pt with a Central, PICC or Fol: No Subjective Review of Systems Patient seen at bedside. Still complains of scrotal pain. Consulted Urology. Advised orchectomy. Vahid Friedman is a 35-year-old male with past medical history of varicocele who presented to the hospital with complains of pain in the left testicle from last time. He rates the pain 10 on 10 in intensity, dull in quality, continuous, with no aggravating or alleviating factors. He will also complains of associated nausea. Patient states that he underwent embolization of varicocele in November at [facility] and another embolization at [facility] in February. Denies any fever, abdominal pain, aggravated or alleviating of pain on test is elevation. Past Medical History (PMH): Recurrent varicocele Past Surgical History (PSH): Embolization of varicocele Family history (FH): History of type 2 diabetes mellitus in father EtOH: Denies alcohol use Smoking /Vaping: Denies smoking Recreational Drugs: Denies recreational drug use Residence: Lives with Home Medications: No home medications Allergies: Known allergies PCP: Dr. Pleitez Specialist relevant to admission: Urologist General: patient denies fever, fatigue, weaknes, sweating, any recent changes in appetite and weight HEENT: No headaches, visiual changes, hearing loss, tinnitus, nasal congestion and discharge, and sore throat. Cardiovascular: Denies chest pain, palpitations, dyspnea on exertion, orthopnea, or claudication. Respiratory: No cough, and wheezing. Gastrointestinal: Denies nausea, vomiting, dysphagia, odynophagia, heartburn, abdominal pain, flatulence, bloating, diarrhea, constipation, change in stool, or blood in stool. Genitourinary: No dysuria, hematuria, discharge, frequency, urgency, nocturia, incontinence, and urinary retention. Complains of pain in the left testis Endocrine: No heat or cold intolerance, polydipsia, polyuria, and polyphagia. Neurological: No dizziness, extremity weakness and numbness, tremors, gait disturbance, seizures, and memory impairment. Psychiatric: Denies depression, anxiety,or insomnia. Musculoskeletal: Denies neck pain, stiffness and swelling, back pain, muscle weakness, joint pain, stiffness, swelling, or limited range of motion. Skin: No rashes, itching, skin lesion, changes in hair, nail, skin texture and breast. Hematologic/Lymphatic: Denies easy bruising, bleeding tendencies, or lymph node enlargement. Objective vital signs Vital Sign Date Time Temp Pulse Resp B/P (MAP) Pulse Ox O2 Delivery O2 Flow Rate FiO2 07/17/25 15:12 77 11 104/73 (83) 94 07/17/25 14:40 Room Air 0 98 07/17/25 14:27 97.3 97.3 Total Intake and Output 07/16/25 07/16/25 07/17/25 15:00 23:00 07:00 Intake Total 1000 ml 0 ml Output Total 500 ml Balance 500 ml 0 ml medications Current Medications Medications Dose Ordered Sig/Aruna Route Start Time Stop Time Status Last Admin Dose Admin Ondansetron HCl 4 mg Q4HP PRN IV 07/15/25 16:15 Ketorolac Tromethamine 15 mg Q6HPRN PRN IV 07/15/25 16:30 07/20/25 16:29 07/16/25 22:15 15 MG Pantoprazole Sodium 40 mg DAILY IV 07/16/25 10:00 07/17/25 09:25 40 MG Sodium Chloride 1,000 ml @ 75 mls/hr [id number] IV 07/15/25 16:45 07/17/25 15:59 75 MLS/HR Examination General Appearance: Alert, Oriented X3, Cooperative, No acute distress HEENT: Atraumatic, PERRLA, EOMI, Mucous membrane moist/pink Respiratory: Clear to auscultation, Normal air movement Cardiovascular: Regular rate, Normal S1, Normal S2, No murmurs, no chest wall tenderness Abdominal: Normal bowel sounds, Soft, No tenderness, No hepatospenomegaly, No masses. Bag of worm appearance and tenderness on palpation of left testis Extremities: No clubbing, No cyanosis, No edema, Normal pulses, No tenderness/swelling Skin: No rashes, No breakdown, No significant lesion Neuro: Normal gait, Normal speech, Strength at 5/5 X4 ext, Normal tone, Sensation intact, Cranial nerves 3-12 NL, Reflexes 2+ Psych/Mental Status: Mental status NL, Mood NL laboratory and microbiology Laboratory Tests 07/16/25 04:49 Test 07/16/25 04:49 Range/Units Serum Glucose 97 74-106 mg/dL Microbiology Date/Time Source Procedure Growth Status 07/15/25 17:42 Blood Blood Culture - Preliminary NO GROWTH AFTER 24 HOURS OF INCUBATION. Resulted 07/15/25 10:53 Voided Urine Urine Culture - Preliminary Resulted Problem List/Assessment/Plan Problem List/Assessment/Plan Assessment and plan Left varicocele IV fluids Pain medications- IV Toradol IV Protonix NPO after midnight Urology consult PT PTT Chest x-ray Supportive care, including scrotal elevation avoid tight pants/belts Ruled out torsion testis Negative ultrasound testis DIET: NPO GI PROPHYLAXIS:: Protonix CODE STATUS: Goal of care discussed for more than 17 minutes, full code DISPOSITION: Med/surge RECONCILED HOME MEDS: None PCP: Dr. Pleitez Patient's status and plan discussed with the patient. Case discussed with Dr. Slater Plan discussed with: Patient Dietary Evaluation Review Comments: Wt management upon D/C Expected Outcomes/Goals: gradual wt loss Date of Service: Jul 17, 2025 Billing Provider: ELIZABET SLATER MD Common Visit Codes: [id number] INP/OBS CARE(HIGH) PRASHANTH AUGUSTE RESIDENT Jul 17, 2025 16:22 ELIZABET SLATER MD Jul 21, 2025 20:30
[2025-07-18 11:39] LABS: Hematocrit 44.5 % (41.0-53.0); Hemoglobin 15.0 g/dL (13.5-17.5); Mean Corpuscular Hemoglobin 29.7 pg (28.0-32.0); Mean Corpuscular Volume 87.8 fL (80.0-100.0); Nucleated Red Blood Cells % 0.6 %
[2025-07-18 12:01] LABS: Alkaline Phosphatase 74 U/L (46-116); Anion Gap 10 (5-15); BUN/Creatinine Ratio 20.3 (10.0-20.0); Blood Urea Nitrogen 16 mg/dL (9-23); Calcium 9.5 mg/dL (8.7-10.4); Carbon Dioxide 25 mmol/L (20-31); Chloride 105 mmol/L (98-107); Potassium 4.0 mmol/L (3.5-5.1); Sodium 140 mmol/L (136-145); Total Protein 7.1 g/dL (5.7-8.2)
[2025-07-18 12:02] LABS: Albumin 4.5 g/dL (3.2-4.8); Bilirubin, Total 0.6 mg/dL (0.2-1.0)
[2025-07-18 12:08] LABS: Alanine Aminotransferase 67 U/L (7-40); Glucose 107 mg/dL (74-106)
--- NOTE | 2025-07-18 15:43 | DVHDSRES ---
Discharge Summary Date of Admission Resident Creating Document: PRASHANTH AUGUSTE RESIDENT Jul 15, 2025 at 16:14 Date of Discharge: Jul 18, 2025 Labs/Diagnostic Data: Laboratory Results Test 07/18/25 11:07 07/15/25 17:50 07/15/25 17:27 07/15/25 16:54 White Blood Count 12.9 10^3/uL (4.4-10.8) Red Blood Count 5.06 10^6/uL (4.5-5.90) Hemoglobin 15.0 g/dL (13.5-17.5) Hematocrit 44.5 % (41.0-53.0) Mean Corpuscular Volume 87.8 fL (80.0-100.0) Mean Corpuscular Hemoglobin 29.7 pg (28.0-32.0) Mean Corpuscular Hemoglobin Concent 33.8 g/dL (32.0-36.0) Red Cell Distribution Width 13.4 % (11.8-14.3) Platelet Count 208 10^3/uL (140-450) Mean Platelet Volume 8.4 fL (6.9-10.8) Neutrophils (%) (Auto) 85.8 % (37.0-80.0) Lymphocytes (%) (Auto) 9.1 % (10.0-50.0) Monocytes (%) (Auto) 4.9 % (0.0-12.0) Eosinophils (%) (Auto) 0.1 % (0.0-7.0) Basophils (%) (Auto) 0.1 % (0.0-2.0) Neutrophils # (Auto) 11.0 10 ^3/uL (1.6-8.6) Lymphocytes # (Auto) 1.2 10 ^3/uL (0.4-5.4) Monocytes # (Auto) 0.6 10 ^3/uL (0-1.3) Eosinophils # (Auto) 0 10 ^3/uL (0-0.8) Basophils # (Auto) 0 10 ^3/uL (0-0.2) Nucleated Red Blood Cells 0.6 % Sodium Level 140 mmol/L (136-145) Potassium Level 4.0 mmol/L (3.5-5.1) Chloride Level 105 mmol/L (98-107) Carbon Dioxide Level 25 mmol/L (20-31) Anion Gap 10 (5-15) Blood Urea Nitrogen 16 mg/dL (9-23) Creatinine 0.79 mg/dL (0.700-1.30) Glomerular Filtration Rate Calc 119 mL/min (>90) BUN/Creatinine Ratio 20.3 (10.0-20.0) Serum Glucose 107 mg/dL (74-106) Calcium Level 9.5 mg/dL (8.7-10.4) Total Bilirubin 0.6 mg/dL (0.2-1.0) Aspartate Amino Transferase (AST) 29 U/L (13-40) Alanine Aminotransferase (ALT) 67 U/L (7-40) Alkaline Phosphatase 74 U/L (46-116) Total Protein 7.1 g/dL (5.7-8.2) Albumin 4.5 g/dL (3.2-4.8) Prothrombin Time 10.3 sec (9.3-11.8) Prothrombin Time INR 0.97 (0.9-1.15) Activated Partial Thromboplast Time 27.2 SEC (24.5-34.5) Tumor Marker Alpha Fetoprotein 3.0 ng/mL (0.0-6.9) Lactic Acid Level 1.9 mmol/L (0.4-2.0) Lipase 44 U/L (12-53) Thyroid Stimulating Hormone (TSH) 1.30 uIU/mL (0.55-4.78) Follicle Stimulating Hormone 4.23 IU/L (1.4-18.1) Test 07/15/25 10:53 Urine Color Yellow (Yellow) Urine Clarity Clear (Clear) Urine pH 5.5 (5.0-9.0) Urine Specific [place] 1.029 (1.001-1.035) Urine Protein Negative (Negative) Urine Ketones Negative (Negative) Urine Blood Negative /uL (Negative) Urine Nitrite Negative (Negative) Urine Bilirubin Negative (Negative) Urine Urobilinogen Normal mg/dL (Negative) Urine Leukocyte Esterase Negative /uL (Negative) Urine RBC None seen /hpf (0 - 3) Urine Microscopic WBC 1 /HPF (0-3) Urine Squamous Epithelial Cells Few /hpf (<5) Urine Bacteria None seen /hpf (None Seen) Urine Mucus Few (None Seen) Urine Glucose Normal mg/dL (Normal) Urine Opiates Screen Neg (NEGATIVE) Urine Fentanyl Screen Neg (NEGATIVE) Urine Barbiturates Screen Neg (NEGATIVE) Urine Phencyclidine Screen Neg (NEGATIVE) Urine Amphetamines Screen Neg (NEGATIVE) Urine Benzodiazepines Screen Neg (NEGATIVE) Urine Cocaine Screen Neg (NEGATIVE) Urine Cannabinoids Screen Neg (NEGATIVE) Chlamydia trachomatis (LAURENT) Negative (Negative) Neisseria gonorrhoeae (LAURENT) Negative (Negative) Other Laboratory Tests 07/18/25 11:07 Brief Hx & Hospital Course: Vahid Friedman is a 35-year-old male with past medical history of varicocele who presented to the hospital with complains of pain in the left testicle. He rated the pain 10 on 10 in intensity, dull in quality, continuous, with no aggravating or alleviating factors. He also complained of associated nausea. Patient stated that he underwent embolization of varicocele in November at [facility] and another embolization at [facility] in February. Denied any fever, abdominal pain or aggravating or alleviating of pain on testis elevation. Testicular ultrasound showed no evidence of torsion, epididymitis or orchitis. Blood culture and urine culture showed no growth. urology was consulted and a left orchiectomy was done. During the course of hospitalization, patient improved clinically and is being discharged. Condition at Discharge: Fair Final Diagnosis/Problems List Left varicocele, s/p left orchiectomy Ruled out torsion testis ruled out epididymitis ruled out hydrocele Discharge Disposition: Home Discharge Instruct/Medications Diet: Regular Activity: No Restrictions, As Tolerated Follow Up/Referral: F/u with PCP in 7 days F/u with urology in 2 weeks No Active Prescriptions or Reported Meds Discharge Statement: "Patient was advised to return to the ER or call 911 if any headaches, dizziness, shortness of breath, chest pain, abdominal pain, bleeding, fevers, or worsening of medical condition. Patient was counseled about treatment plan, medications, possible side effects, patientverbalized understanding. All questions were answered to the best of my ability. This discharge took greater then 30 minutes in planning, reviewing documentation, counseling the patient, and discussing with other team members." ASSESSMENT ASSESSMENT Assessment Left varicocele S/P orchiectomy Date of Service: Jul 18, 2025 Billing Provider: ELIZABET GRANT MD Common Visit Codes: [id number] DISCH DAY >30min PRASHANTH AUGUSTE RESIDENT Jul 18, 2025 15:43 ELIZABET GRANT MD Jul 21, 2025 20:30
== END 2025-07-18 18:31 | disposition home or self-care (01) | DRG 483 ==
LOC: ER 08:53 → OVERFLOW 16:14 → WEST WING 21:04
PROVIDERS: ADMIT Internal Medicine Geriatric Medicine; ATTEND Internal Medicine Geriatric Medicine
PROC: 0VBB0ZZ Excision of Left Testis, Open Approach (ICD-10-PCS; principal; 2025-07-17 13:41)
DX: I86.1 Scrotal varices (principal); Z79.899 Other long term (current) drug therapy; Z83.3 Family history of diabetes mellitus
CPT/HCPCS: 36415; 76870; 80048; 80053; 80307; 81001; 82105; 83001; 83605; 83690; 84443; 85025; 85610; 85730; 87040; 87086; 99291; 99292; G0378; J1100; J1885; J2003; J2250; J2405; J2470; J2704; J3490